=== PATIENT | female | born 1980 | race Caucasian/White ===

== ENCOUNTER 2017-06-26 03:15 | Inpatient (IN) | payer OTHER ==
[2017-06-26] MEDS: FAMOTIDINE 20 MG TAB PO (05:16)
[2017-06-26] MEDS: morphine 4 MG/ML VIAL IV ×3 (05:16→12:52)
[2017-06-26] MEDS: ONDANSETRON 4 MG INJ IV ×4 (05:16→19:41)
[2017-06-26] MEDS: SOD CHLORIDE 0.9% 1,000 ML IV ×2 (05:17→11:01)
[2017-06-26 05:48] LABS: ADD MAN DIFF? NO
[2017-06-26 05:53] LABS: BASOPHIL # 0.2 10^3/ul (0.0-0.1); BASOPHILS % 3.3 % (0.0-2.0); EOSINOPHILS # 0.3 10^3/ul (0.0-0.5); HEMATOCRIT 40.7 % (37.0-47.0); LYMPHOCYTES # 1.9 10^3/ul (0.8-2.9); LYMPHOCYTES % 30.7 % (15.0-51.0); MEAN CORPUSCULAR HEMOGLOBIN 30.3 pg (29.0-33.0); MEAN CORPUSCULAR HGB CONC 34.4 g/dl (32.0-37.0); MEAN CORPUSCULAR VOLUME 88.1 fl (82.0-101.0); MEAN PLATELET VOLUME 11.4 fl (7.4-10.4); MONOCYTE # 0.7 10^3/ul (0.3-0.9); MONOCYTES % 11.1 % (0.0-11.0); NEUTROPHILS % 49.6 % (39.0-77.0); PLATELET COUNT 161 10^3/UL (140-415); RED BLOOD COUNT 4.62 10^6/ul (4.20-5.40); RED CELL DISTRIBUTION WIDTH 15.9 % (11.5-14.5)
[2017-06-26 05:53] LABS: WHITE BLOOD COUNT 6.1 10^3/ul (4.8-10.8)
[2017-06-26 06:11] LABS: ALANINE AMINOTRANSFERASE 36 IU/L (13-69); ALBUMIN 2.6 g/dl (3.3-4.9); ALBUMIN/GLOBULIN RATIO 0.63; ALKALINE PHOSPHATASE 428 IU/L (42-121); ANION GAP 17 (8-16); ASPARTATE AMINO TRANSFERASE 123 IU/L (15-46); BILIRUBIN,INDIRECT 0.2 mg/dl (0-1.1); BILIRUBIN,TOTAL 0.2 mg/dl (0.2-1.3); BLOOD UREA NITROGEN 5 mg/dl (7-20); CALCIUM 7.3 mg/dl (8.4-10.2); CARBON DIOXIDE 25 mmol/L (21-31); CHLORIDE 105 mmol/L (97-110); CREATININE 0.52 mg/dl (0.44-1.00); GLUCOSE 94 mg/dl (70-220); LIPASE 185 U/L (23-300); POTASSIUM 4.9 mmol/L (3.5-5.1); SODIUM 142 mmol/L (135-144); TOTAL PROTEIN 6.7 g/dl (6.1-8.1)
[2017-06-26 06:12] LABS: URINE BLOOD (Dip) POC 2+ (NEGATIVE); URINE GLUCOSE (Dip) POC Negative (NEGATIVE); URINE KETONES (Dip) POC Negative (NEGATIVE); URINE LEUKOCYTE EST (Dip) POC Negative (NEGATIVE); URINE NITRITE (Dip) POC Negative (NEGATIVE); URINE TOTAL PROTEIN POC 3+ (NEGATIVE)
[2017-06-26 06:12] LABS: URINE PH (Dip) POC 6.5 (5.0-8.5)
[2017-06-26 06:24] LABS: TROPONIN-I < 0.012 ng/ml (0.00-0.12)
[2017-06-26 07:20] LABS: INR 1.03; PROTIME 13.6 Sec (11.9-14.9); PT RATIO 1.1
[2017-06-26 07:21] LABS: ADD UMIC YES; PARTIAL THROMBOPLASTIN TIME 35.4 Sec (25.0-35.0); UR ASCORBIC ACID NEGATIVE (NEGATIVE); UR BACTERIA FEW /HPF (NONE SEEN); UR BILIRUBIN (Dip) NEGATIVE (NEGATIVE); UR BLOOD (Dip) 2+ mg/dL (NEGATIVE); UR CLARITY CLOUDY (CLEAR); UR COLOR AMBER (YELLOW); UR GLUCOSE (Dip) NEGATIVE (NEGATIVE); UR KETONES (Dip) NEGATIVE (NEGATIVE); UR LEUKOCYTE ESTERASE (Dip) NEGATIVE Leu/ul (NEGATIVE); UR MUCUS FEW /HPF (NONE SEEN); UR NITRITE (Dip) NEGATIVE (NEGATIVE); UR RBC 18 /HPF (0-5); UR SPECIFIC GRAVITY (Dip) 1.018 (1.003-1.030); UR SQUAMOUS EPITHELIAL CELL FEW /HPF (FEW); UR TOTAL PROTEIN (Dip) 3+ mg/dl (NEGATIVE); UR UROBILINOGEN (Dip) 1+ mg/dL (NEGATIVE); UR WBC 5 /HPF (0-5)
[2017-06-26 07:25] LABS: LACTIC ACID 1.2 mmol/L (0.5-2.0)
[2017-06-26 07:38] LABS: AMPHETAMINE/METHAMPHETAMINE Negative (NEGATIVE); BARBITURATES Negative (NEGATIVE); BENZODIAZEPINES Negative (NEGATIVE); CANNABINOIDS Negative (NEGATIVE); COCAINE Negative (NEGATIVE); OPIATES Positive (NEGATIVE)
[2017-06-26 07:43] LABS: B-TYPE NATRIURETIC PEPTIDE 32 PG/ML (0-125)
[2017-06-26] MEDS: ALBUTEROL 0.5% (NEB) 2.5 MG/0.5 ML AMP INH (09:37)
[2017-06-26] MEDS: SOD CHLORIDE 0.9% 100 ML (10:20)
[2017-06-26] MEDS: IOHEXOL 300MG/ML 150 ML BTL (10:25)
[2017-06-26] MEDS: PANTOPRAZOLE IV 80 MG in SOD CHLORIDE 0.9% 100 ML IVPB (10:43)
[2017-06-26] MEDS: PANTOPRAZOLE IV 80 MG in SOD CHLORIDE 0.9% 100 ML IV (10:44)
[2017-06-26] MEDS ORDERED: ONDANSETRON 4 MG INJ IV (11:30)
[2017-06-26] MEDS ORDERED: ACETAMINOPHEN 325 MG TAB PO (11:30)
[2017-06-26] MEDS: FUROSEMIDE 20 MG INJ IV ×2 (15:15→22:56)
[2017-06-26] MEDS: ALBUMIN HUMAN 25% 100 ML IV ×2 (15:37→23:43)
[2017-06-26] MEDS: LORAZEPAM 2 MG INJ IV (16:29)
[2017-06-26] MEDS: PANTOPRAZOLE 40 MG INJ IV (18:00)
[2017-06-26] MEDS: HYDROCODONE/APAP (5/325) TAB PO (18:19)
[2017-06-26] MEDS: DOCUSATE SODIUM 100 MG CAP PO (20:58)
[2017-06-26] MEDS: CHLORDIAZEPOXIDE 5 MG CAP PO (20:59)
[2017-06-27] MEDS: HYDROCODONE/APAP (5/325) TAB PO ×3 (00:24→23:28)
[2017-06-27] MEDS: LORAZEPAM 2 MG INJ IV ×3 (04:43→21:18)
[2017-06-27] MEDS: FUROSEMIDE 20 MG INJ IV ×3 (05:57→22:02)
[2017-06-27] MEDS: PANTOPRAZOLE 40 MG INJ IV ×2 (05:57→18:15)
[2017-06-27] MEDS: ALBUMIN HUMAN 25% 100 ML IV (05:58)
[2017-06-27] MEDS: THIAMINE 100 MG TAB PO (08:50)
[2017-06-27] MEDS: DOCUSATE SODIUM 100 MG CAP PO ×2 (08:50→22:02)
[2017-06-27] MEDS: FOLIC ACID 1 MG TAB PO (08:50)
[2017-06-27] MEDS: CHLORDIAZEPOXIDE 5 MG CAP PO ×3 (08:50→22:02)
[2017-06-27] MEDS: MULTIVITAMINS THERAPEUTIC TAB PO (08:50)
[2017-06-27] MEDS: AZITHROMYCIN 250 MG TAB PO (10:52)
[2017-06-27] MEDS: TOPIRAMATE 25 MG TAB PO ×2 (11:51→22:02)
[2017-06-27 12:01] LABS: ADD MAN DIFF? NO
[2017-06-27 12:21] LABS: WHITE BLOOD COUNT 4.9 10^3/ul (4.8-10.8)
[2017-06-27 12:21] LABS: BASOPHIL # 0.1 10^3/ul (0.0-0.1); BASOPHILS % 2.1 % (0.0-2.0); EOSINOPHILS # 0.2 10^3/ul (0.0-0.5); EOSINOPHILS % 4.1 % (0.0-7.0); HEMOGLOBIN 11.9 g/dl (12.0-16.0); LYMPHOCYTES # 0.8 10^3/ul (0.8-2.9); LYMPHOCYTES % 16.1 % (15.0-51.0); MEAN CORPUSCULAR HEMOGLOBIN 29.6 pg (29.0-33.0); MEAN CORPUSCULAR HGB CONC 33.1 g/dl (32.0-37.0); MEAN CORPUSCULAR VOLUME 89.6 fl (82.0-101.0); MEAN PLATELET VOLUME 10.7 fl (7.4-10.4); MONOCYTE # 0.6 10^3/ul (0.3-0.9); MONOCYTES % 11.8 % (0.0-11.0); NEUTROPHIL # 3.2 10^3/ul (1.6-7.5); NEUTROPHILS % 65.7 % (39.0-77.0); PLATELET COUNT 133 10^3/UL (140-415); RED BLOOD COUNT 4.02 10^6/ul (4.20-5.40); RED CELL DISTRIBUTION WIDTH 14.4 % (11.5-14.5)
[2017-06-27 12:28] LABS: HEMOGLOBIN A1C 5.5 % (0-5.9)
[2017-06-27 12:34] LABS: INR 1.09; PROTIME 14.3 Sec (11.9-14.9); PT RATIO 1.1
[2017-06-27 12:35] LABS: PARTIAL THROMBOPLASTIN TIME 35.4 Sec (25.0-35.0)
[2017-06-27 12:41] LABS: ALANINE AMINOTRANSFERASE 29 IU/L (13-69); ALBUMIN 3.1 g/dl (3.3-4.9); ALBUMIN/GLOBULIN RATIO 0.83; ALKALINE PHOSPHATASE 331 IU/L (42-121); ANION GAP 17 (8-16); ASPARTATE AMINO TRANSFERASE 104 IU/L (15-46); BILIRUBIN,INDIRECT 0.8 mg/dl (0-1.1); BILIRUBIN,TOTAL 0.9 mg/dl (0.2-1.3); BLOOD UREA NITROGEN 6 mg/dl (7-20); CALCIUM 7.2 mg/dl (8.4-10.2); CARBON DIOXIDE 28 mmol/L (21-31); CHLORIDE 102 mmol/L (97-110); CHOL/HDL RATIO 2.2 RATIO; CHOLESTEROL 239 mg/dl (100-200); CREATININE 0.56 mg/dl (0.44-1.00); GLUCOSE 61 mg/dl (70-220); HDL CHOLESTEROL 106 mg/dl (34-82); LDL CHOLESTEROL,CALCULATED 104 mg/dl; PHOSPHORUS 3.6 mg/dl (2.5-4.9); POTASSIUM 3.4 mmol/L (3.5-5.1); SODIUM 144 mmol/L (135-144); TOTAL PROTEIN 6.8 g/dl (6.1-8.1); TRIGLYCERIDES 147 mg/dl (0-149)
[2017-06-27] MEDS: CEFAZOLIN 1 GM/50 ML (PMX) 50 ML IVPB ×2 (13:30→21:21)
[2017-06-28] MEDS: LEVALBUTEROL (NEB) 0.63 MG/3 ML AMP HHN (03:05)
[2017-06-28] MEDS: ACETYLCYSTEINE 20% 4 ML VIAL NEB (03:05)
[2017-06-28] MEDS: IPRATROPIUM (NEB) 0.5 MG/2.5 ML AMP HHN (03:05)
[2017-06-28] MEDS: PANTOPRAZOLE 40 MG INJ IV ×2 (05:39→18:38)
[2017-06-28] MEDS: CEFAZOLIN 1 GM/50 ML (PMX) 50 ML IVPB ×3 (05:39→22:18)
[2017-06-28] MEDS: FUROSEMIDE 20 MG INJ IV ×3 (05:40→22:19)
[2017-06-28 05:50] LABS: ADD MAN DIFF? NO
[2017-06-28 06:07] LABS: WHITE BLOOD COUNT 4.9 10^3/ul (4.8-10.8)
[2017-06-28 06:07] LABS: BASOPHIL # 0.1 10^3/ul (0.0-0.1); BASOPHILS % 1.6 % (0.0-2.0); EOSINOPHILS # 0.3 10^3/ul (0.0-0.5); HEMATOCRIT 35.2 % (37.0-47.0); HEMOGLOBIN 12.2 g/dl (12.0-16.0); LYMPHOCYTES # 1.2 10^3/ul (0.8-2.9); LYMPHOCYTES % 24.4 % (15.0-51.0); MEAN CORPUSCULAR HEMOGLOBIN 30.3 pg (29.0-33.0); MEAN CORPUSCULAR HGB CONC 34.7 g/dl (32.0-37.0); MEAN CORPUSCULAR VOLUME 87.6 fl (82.0-101.0); MEAN PLATELET VOLUME 10.6 fl (7.4-10.4); MONOCYTE # 0.6 10^3/ul (0.3-0.9); MONOCYTES % 12.3 % (0.0-11.0); NEUTROPHIL # 2.7 10^3/ul (1.6-7.5); NEUTROPHILS % 54.5 % (39.0-77.0); PLATELET COUNT 128 10^3/UL (140-415); RED BLOOD COUNT 4.02 10^6/ul (4.20-5.40); RED CELL DISTRIBUTION WIDTH 14.2 % (11.5-14.5)
[2017-06-28 06:54] LABS: MAGNESIUM 1.2 mg/dl (1.7-2.5)
[2017-06-28 07:04] LABS: ALANINE AMINOTRANSFERASE 27 IU/L (13-69); ALBUMIN 2.7 g/dl (3.3-4.9); ALBUMIN/GLOBULIN RATIO 0.77; ALKALINE PHOSPHATASE 282 IU/L (42-121); ANION GAP 11 (8-16); ASPARTATE AMINO TRANSFERASE 80 IU/L (15-46); BILIRUBIN,INDIRECT 0.5 mg/dl (0-1.1); BILIRUBIN,TOTAL 0.5 mg/dl (0.2-1.3); BLOOD UREA NITROGEN 7 mg/dl (7-20); CALCIUM 6.9 mg/dl (8.4-10.2); CARBON DIOXIDE 34 mmol/L (21-31); CHLORIDE 99 mmol/L (97-110); CREATININE 0.76 mg/dl (0.44-1.00); GLUCOSE 94 mg/dl (70-220); POTASSIUM 3.2 mmol/L (3.5-5.1); SODIUM 141 mmol/L (135-144); TOTAL PROTEIN 6.2 g/dl (6.1-8.1)
[2017-06-28] MEDS: THIAMINE 100 MG TAB PO (08:10)
[2017-06-28] MEDS: AZITHROMYCIN 250 MG TAB PO (08:10)
[2017-06-28] MEDS: DOCUSATE SODIUM 100 MG CAP PO ×2 (08:10→20:14)
[2017-06-28] MEDS: CHLORDIAZEPOXIDE 5 MG CAP PO ×3 (08:11→20:14)
[2017-06-28] MEDS: MULTIVITAMINS THERAPEUTIC TAB PO (08:11)
[2017-06-28] MEDS: HYDROCODONE/APAP (5/325) TAB PO ×2 (08:11→20:14)
[2017-06-28] MEDS: FOLIC ACID 1 MG TAB PO (08:11)
[2017-06-28] MEDS: TOPIRAMATE 25 MG TAB PO ×2 (08:11→20:14)
[2017-06-28] MEDS: BISACODYL (EC) 5 MG TAB PO (09:55)
[2017-06-28] MEDS: POTASSIUM CHLORIDE (SR) 20 MEQ TAB PO (13:34)
[2017-06-28] MEDS ORDERED: POTASSIUM CHLORIDE 30 MEQ in DEXTROSE 5% 250 ML IVPB (14:15)
[2017-06-28] MEDS: POTASSIUM CHLORIDE 50 ML IVPB ×3 (15:43→18:38)
[2017-06-28] MEDS: PERMETHRIN 5% 60 GM CR TOP (15:49)
[2017-06-28] MEDS: POLYETHYLENE GLYCOL 3350 119 GM POWDER PO (20:13)
[2017-06-28] MEDS: MAGNESIUM CITRATE 300 ML BTL PO (21:21)
[2017-06-28] MEDS: PERMETHRIN 1% 59 ML TOP (23:57)
[2017-06-29] MEDS: PANTOPRAZOLE 40 MG INJ IV (05:05)
[2017-06-29] MEDS: FUROSEMIDE 20 MG INJ IV ×2 (05:06→14:25)
[2017-06-29] MEDS: POLYETHYLENE GLYCOL 3350 119 GM POWDER PO (05:06)
[2017-06-29] MEDS: CEFAZOLIN 1 GM/50 ML (PMX) 50 ML IVPB ×3 (05:06→21:11)
[2017-06-29 06:22] LABS: ADD MAN DIFF? NO
[2017-06-29 06:33] LABS: WHITE BLOOD COUNT 5.7 10^3/ul (4.8-10.8)
[2017-06-29 06:33] LABS: BASOPHIL # 0.1 10^3/ul (0.0-0.1); BASOPHILS % 1.8 % (0.0-2.0); EOSINOPHILS # 0.4 10^3/ul (0.0-0.5); HEMATOCRIT 36.8 % (37.0-47.0); HEMOGLOBIN 12.8 g/dl (12.0-16.0); LYMPHOCYTES # 1.5 10^3/ul (0.8-2.9); LYMPHOCYTES % 25.7 % (15.0-51.0); MEAN CORPUSCULAR HEMOGLOBIN 30.5 pg (29.0-33.0); MEAN CORPUSCULAR HGB CONC 34.8 g/dl (32.0-37.0); MEAN CORPUSCULAR VOLUME 87.8 fl (82.0-101.0); MEAN PLATELET VOLUME 11.1 fl (7.4-10.4); MONOCYTE # 0.8 10^3/ul (0.3-0.9); MONOCYTES % 13.5 % (0.0-11.0); NEUTROPHILS % 51.8 % (39.0-77.0); PLATELET COUNT 147 10^3/UL (140-415); RED BLOOD COUNT 4.19 10^6/ul (4.20-5.40); RED CELL DISTRIBUTION WIDTH 14.4 % (11.5-14.5)
[2017-06-29 06:47] LABS: ALBUMIN 2.7 g/dl (3.3-4.9); ANION GAP 10 (8-16); BLOOD UREA NITROGEN 7 mg/dl (7-20); CALCIUM 7.2 mg/dl (8.4-10.2); CARBON DIOXIDE 33 mmol/L (21-31); CHLORIDE 100 mmol/L (97-110); GLUCOSE 93 mg/dl (70-220); PHOSPHORUS 2.9 mg/dl (2.5-4.9); POTASSIUM 3.1 mmol/L (3.5-5.1); SODIUM 140 mmol/L (135-144)
[2017-06-29] MEDS: FOLIC ACID 1 MG TAB PO (08:03)
[2017-06-29] MEDS: DOCUSATE SODIUM 100 MG CAP PO ×2 (08:03→20:16)
[2017-06-29] MEDS: THIAMINE 100 MG TAB PO (08:04)
[2017-06-29] MEDS: MULTIVITAMINS THERAPEUTIC TAB PO (08:04)
[2017-06-29] MEDS: AZITHROMYCIN 250 MG TAB PO (08:20)
[2017-06-29] MEDS: CHLORDIAZEPOXIDE 5 MG CAP PO ×3 (08:20→21:08)
[2017-06-29] MEDS: BISACODYL (EC) 5 MG TAB PO (08:21)
[2017-06-29] MEDS: TOPIRAMATE 25 MG TAB PO ×2 (08:21→20:16)
[2017-06-29] MEDS ORDERED: POTASSIUM CHLORIDE 30 MEQ in SOD CHLORIDE 0.9% 150 ML IVPB (10:00)
[2017-06-29] MEDS: POTASSIUM CHLORIDE 50 ML IVPB ×3 (10:14→13:19)
[2017-06-29] MEDS ORDERED: DICYCLOMINE 10 MG CAP PO (12:00)
[2017-06-29] MEDS ORDERED: D5W-0.45 NACL + KCL 20 MEQ 1,000 ML IV (12:00)
[2017-06-29] MEDS: ALBUTEROL 0.083% (NEB) 2.5 MG/3 ML AMP HHN (17:27)
[2017-06-29] MEDS: SPIRONOLACTONE 25 MG TAB PO ×2 (18:00→20:16)
[2017-06-29] MEDS ORDERED: PROPOFOL 20 ML (18:17)
[2017-06-29] MEDS: POTASSIUM CHLORIDE (1.33 MEQ/ML PO SYG) PO (20:17)
[2017-06-29] MEDS: HYDROCODONE/APAP (5/325) TAB PO (21:08)
[2017-06-29] MEDS: morphine 2 MG INJ IV (22:46)
[2017-06-30] MEDS: LEVALBUTEROL (NEB) 0.63 MG/3 ML AMP HHN (04:58)
[2017-06-30] MEDS: IPRATROPIUM (NEB) 0.5 MG/2.5 ML AMP HHN (04:58)
[2017-06-30] MEDS: PANTOPRAZOLE 40 MG INJ IV (05:26)
[2017-06-30] MEDS: FUROSEMIDE 20 MG TAB PO ×2 (05:27→17:40)
[2017-06-30] MEDS: SPIRONOLACTONE 25 MG TAB PO ×2 (05:27→17:40)
[2017-06-30] MEDS: CHLORDIAZEPOXIDE 5 MG CAP PO (05:28)
[2017-06-30] MEDS: CEFAZOLIN 1 GM/50 ML (PMX) 50 ML IVPB ×3 (05:30→22:08)
[2017-06-30 06:30] LABS: ADD MAN DIFF? NO
[2017-06-30 06:42] LABS: BASOPHIL # 0.1 10^3/ul (0.0-0.1); BASOPHILS % 1.6 % (0.0-2.0); EOSINOPHILS # 0.5 10^3/ul (0.0-0.5); EOSINOPHILS % 9.2 % (0.0-7.0); HEMATOCRIT 37.1 % (37.0-47.0); HEMOGLOBIN 12.7 g/dl (12.0-16.0); LYMPHOCYTES # 1.4 10^3/ul (0.8-2.9); LYMPHOCYTES % 27.8 % (15.0-51.0); MEAN CORPUSCULAR HEMOGLOBIN 30.5 pg (29.0-33.0); MEAN CORPUSCULAR HGB CONC 34.2 g/dl (32.0-37.0); MONOCYTE # 0.8 10^3/ul (0.3-0.9); MONOCYTES % 15.8 % (0.0-11.0); NEUTROPHIL # 2.3 10^3/ul (1.6-7.5); NEUTROPHILS % 45.2 % (39.0-77.0); PLATELET COUNT 149 10^3/UL (140-415); RED BLOOD COUNT 4.17 10^6/ul (4.20-5.40); RED CELL DISTRIBUTION WIDTH 14.6 % (11.5-14.5)
[2017-06-30 07:16] LABS: ALBUMIN 2.6 g/dl (3.3-4.9); ANION GAP 10 (8-16); BLOOD UREA NITROGEN 7 mg/dl (7-20); CARBON DIOXIDE 31 mmol/L (21-31); CHLORIDE 103 mmol/L (97-110); CREATININE 0.72 mg/dl (0.44-1.00); GLUCOSE 85 mg/dl (70-220); MAGNESIUM 1.3 mg/dl (1.7-2.5); PHOSPHORUS 3.6 mg/dl (2.5-4.9); POTASSIUM 3.5 mmol/L (3.5-5.1); SODIUM 140 mmol/L (135-144)
[2017-06-30] MEDS: DOCUSATE SODIUM 100 MG CAP PO ×2 (08:47→22:08)
[2017-06-30] MEDS: FOLIC ACID 1 MG TAB PO (08:47)
[2017-06-30] MEDS: POTASSIUM CHLORIDE (1.33 MEQ/ML PO SYG) PO ×2 (08:48→22:08)
[2017-06-30] MEDS: THIAMINE 100 MG TAB PO (08:48)
[2017-06-30] MEDS: MULTIVITAMINS THERAPEUTIC TAB PO (08:48)
[2017-06-30] MEDS: AZITHROMYCIN 250 MG TAB PO (08:48)
[2017-06-30] MEDS: morphine 2 MG INJ IV ×2 (09:23→22:24)
[2017-06-30] MEDS: TOPIRAMATE 25 MG TAB PO ×2 (09:23→22:08)
[2017-06-30] MEDS: POTASSIUM CHLORIDE (SR) 20 MEQ TAB PO (12:53)
[2017-06-30] MEDS: MAGNESIUM OXIDE 400 MG TAB PO (12:53)
[2017-06-30 16:21] LABS: COLLECTION PERIOD 24 hrs
[2017-06-30 17:04] LABS: CREATININE,URINE RANDOM 42.57 mg/dl (20-320)
[2017-06-30 17:09] LABS: COLLECTION PERIOD 24 hrs; CREATININE CLEARANCE 50.3 mls/min (84.0-162.0); SCRET 0.72 mg/dl (0.44-1.00); VOLUME 1225 ml/24hrs
[2017-06-30 17:10] LABS: VOLUME 1225 mls
[2017-06-30 17:24] LABS: 24HR URINE TOTAL PROTEIN 5267.5 mg/24hrs (42.0-225.0)
[2017-07-01] MEDS: LEVALBUTEROL (NEB) 0.63 MG/3 ML AMP HHN (01:05)
[2017-07-01] MEDS: PANTOPRAZOLE (EC) 40 MG TAB PO (05:26)
[2017-07-01] MEDS: CEFAZOLIN 1 GM/50 ML (PMX) 50 ML IVPB ×2 (05:26→13:30)
[2017-07-01] MEDS: FUROSEMIDE 20 MG TAB PO (05:27)
[2017-07-01] MEDS: SPIRONOLACTONE 25 MG TAB PO (05:28)
[2017-07-01] MEDS: HYDROCODONE/APAP (5/325) TAB PO (05:36)
[2017-07-01 07:15] LABS: ADD MAN DIFF? NO
[2017-07-01 07:23] LABS: BASOPHIL # 0.1 10^3/ul (0.0-0.1); BASOPHILS % 1.8 % (0.0-2.0); EOSINOPHILS # 0.4 10^3/ul (0.0-0.5); EOSINOPHILS % 7.9 % (0.0-7.0); HEMATOCRIT 35.9 % (37.0-47.0); HEMOGLOBIN 12.6 g/dl (12.0-16.0); LYMPHOCYTES # 1.3 10^3/ul (0.8-2.9); LYMPHOCYTES % 24.5 % (15.0-51.0); MEAN CORPUSCULAR HEMOGLOBIN 30.7 pg (29.0-33.0); MEAN CORPUSCULAR HGB CONC 35.1 g/dl (32.0-37.0); MEAN CORPUSCULAR VOLUME 87.3 fl (82.0-101.0); MEAN PLATELET VOLUME 11.4 fl (7.4-10.4); MONOCYTE # 0.8 10^3/ul (0.3-0.9); MONOCYTES % 14.9 % (0.0-11.0); NEUTROPHIL # 2.7 10^3/ul (1.6-7.5); NEUTROPHILS % 50.5 % (39.0-77.0); PLATELET COUNT 136 10^3/UL (140-415); RED BLOOD COUNT 4.11 10^6/ul (4.20-5.40); RED CELL DISTRIBUTION WIDTH 14.5 % (11.5-14.5)
[2017-07-01 07:23] LABS: WHITE BLOOD COUNT 5.4 10^3/ul (4.8-10.8)
[2017-07-01 07:34] LABS: POSITIVE DIFF @See below
[2017-07-01 07:52] LABS: ALBUMIN 2.4 g/dl (3.3-4.9); ANION GAP 9 (8-16); BLOOD UREA NITROGEN 6 mg/dl (7-20); CALCIUM 7.4 mg/dl (8.4-10.2); CARBON DIOXIDE 29 mmol/L (21-31); CHLORIDE 104 mmol/L (97-110); CREATININE 0.65 mg/dl (0.44-1.00); GLUCOSE 81 mg/dl (70-220); MAGNESIUM 1.3 mg/dl (1.7-2.5); POTASSIUM 3.6 mmol/L (3.5-5.1); SODIUM 138 mmol/L (135-144)
[2017-07-01] MEDS: POTASSIUM CHLORIDE (1.33 MEQ/ML PO SYG) PO (08:49)
[2017-07-01] MEDS: THIAMINE 100 MG TAB PO (08:50)
[2017-07-01] MEDS: MULTIVITAMINS THERAPEUTIC TAB PO (08:50)
[2017-07-01] MEDS: DOCUSATE SODIUM 100 MG CAP PO (08:50)
[2017-07-01] MEDS: FOLIC ACID 1 MG TAB PO (08:50)
[2017-07-01] MEDS: TOPIRAMATE 25 MG TAB PO (10:48)
[2017-07-01] MEDS ORDERED: POLYETHYLENE GLYCOL 17 GM PACKET PO (11:00)
[2017-07-01] MEDS: POTASSIUM CHLORIDE (SR) 20 MEQ TAB PO (12:30)
[2017-07-01] MEDS: MAGNESIUM OXIDE 400 MG TAB PO (12:30)
== END 2017-07-01 15:00 | disposition home or self-care (01) | DRG 394 ==
LOC: E/R 03:15 → MS2 11:02
PROVIDERS: Family Medicine
PROC: 0DB68ZX Excision of Stomach, Via Natural or Artificial Opening Endoscopic, Diagnostic (ICD-10-PCS; principal; 2017-06-29 17:30)
PROC: 0DJD8ZZ Inspection of Lower Intestinal Tract, Via Natural or Artificial Opening Endoscopic (ICD-10-PCS; 2017-06-29 17:30)
DX: K64.8 Other hemorrhoids (principal); K92.1 Melena; I85.10 Secondary esophageal varices without bleeding; Z68.42 Body mass index [BMI] 45.0-49.9, adult; K70.31 Alcoholic cirrhosis of liver with ascites; D62 Acute posthemorrhagic anemia; E66.01 Morbid (severe) obesity due to excess calories; R16.1 Splenomegaly, not elsewhere classified; F10.229 Alcohol dependence with intoxication, unspecified; Y90.7 Blood alcohol level of 200-239 mg/100 ml; E87.6 Hypokalemia; I86.8 Varicose veins of other specified sites; K29.70 Gastritis, unspecified, without bleeding; R60.1 Generalized edema
CPT/HCPCS: 36415; 71045; 74177; 80053; 80061; 80069; 80306; 80307; 81001; 81003; 82575; 82962; 83036; 83605; 83690; 83735; 83880; 84156; 84484; 84703; 85025; 85610; 85730; 86850; 86900; 86901; 88305; 88312; 93005; 94640; 94644; 94664; 96361; 96365; 96375; 96376; 99285-25; J1940

== ENCOUNTER 2017-09-21 08:01 | Inpatient (IN) | payer OTHER ==
[2017-09-21] MEDS: ONDANSETRON 4 MG INJ IV (08:30)
[2017-09-21] MEDS: morphine 4 MG/ML VIAL IV (08:31)
[2017-09-21 08:48] LABS: ADD MAN DIFF? NO
[2017-09-21 08:53] LABS: BASOPHIL # 0.2 10^3/ul (0.0-0.1); BASOPHILS % 2.2 % (0.0-2.0); EOSINOPHILS # 0.2 10^3/ul (0.0-0.5); HEMATOCRIT 34.2 % (37.0-47.0); HEMOGLOBIN 12.6 g/dl (12.0-16.0); LYMPHOCYTES # 2.1 10^3/ul (0.8-2.9); LYMPHOCYTES % 27.7 % (15.0-51.0); MEAN CORPUSCULAR HEMOGLOBIN 32.3 pg (29.0-33.0); MEAN CORPUSCULAR HGB CONC 36.8 g/dl (32.0-37.0); MEAN CORPUSCULAR VOLUME 87.7 fl (82.0-101.0); MEAN PLATELET VOLUME 10.6 fl (7.4-10.4); MONOCYTE # 0.8 10^3/ul (0.3-0.9); MONOCYTES % 10.8 % (0.0-11.0); NEUTROPHIL # 4.2 10^3/ul (1.6-7.5); NEUTROPHILS % 55.9 % (39.0-77.0); NUCLEATED RED BLOOD CELLS% 0.3 /100WBC (0.0-0.0); PLATELET COUNT 187 10^3/UL (140-415); RED CELL DISTRIBUTION WIDTH 16.9 % (11.5-14.5)
[2017-09-21 08:53] LABS: WHITE BLOOD COUNT 7.4 10^3/ul (4.8-10.8)
[2017-09-21 09:09] LABS: INR 1.15; PROTIME 14.9 Sec (11.9-14.9); PT RATIO 1.2
[2017-09-21 09:10] LABS: ALANINE AMINOTRANSFERASE 133 IU/L (13-69); ALBUMIN 2.7 g/dl (3.3-4.9); ALBUMIN/GLOBULIN RATIO 0.58; ALKALINE PHOSPHATASE 1202 IU/L (42-121); ANION GAP 15 (8-16); ASPARTATE AMINO TRANSFERASE 400 IU/L (15-46); BILIRUBIN,INDIRECT 0.4 mg/dl (0-1.1); BILIRUBIN,TOTAL 1.1 mg/dl (0.2-1.3); BLOOD UREA NITROGEN 7 mg/dl (7-20); CALCIUM 7.2 mg/dl (8.4-10.2); CARBON DIOXIDE 24 mmol/L (21-31); CHLORIDE 107 mmol/L (97-110); CREATININE 0.84 mg/dl (0.44-1.00); GLUCOSE 105 mg/dl (70-220); LIPASE 132 U/L (23-300); PARTIAL THROMBOPLASTIN TIME 35.5 Sec (25.0-35.0); SODIUM 142 mmol/L (135-144); TOTAL PROTEIN 7.3 g/dl (6.1-8.1)
[2017-09-21 09:24] LABS: TROPONIN-I < 0.012 ng/ml (0.00-0.12)
[2017-09-21] MEDS ORDERED: ONDANSETRON 4 MG INJ IV (12:00)
[2017-09-21 13:20] LABS: MAGNESIUM 1.4 mg/dl (1.7-2.5)
[2017-09-21] MEDS: FUROSEMIDE 20 MG INJ IV ×2 (13:50→18:58)
[2017-09-21] MEDS: ALBUMIN HUMAN 25% 100 ML IV ×2 (14:54→21:41)
[2017-09-21] MEDS: CHLORDIAZEPOXIDE 25 MG CAP PO ×2 (15:11→21:41)
[2017-09-21] MEDS: ACETAMINOPHEN 325 MG TAB PO (15:22)
[2017-09-21] MEDS ORDERED: POLYETHYLENE GLYCOL 17 GM PACKET PO (18:00)
[2017-09-21] MEDS: SPIRONOLACTONE 25 MG TAB PO (18:57)
[2017-09-21] MEDS: OXYCODONE/ACETAMINOPHEN (5/325) TAB PO (18:57)
[2017-09-21] MEDS: TOPIRAMATE 25 MG TAB PO (21:42)
[2017-09-21] MEDS: DOCUSATE SODIUM 100 MG CAP PO (21:42)
[2017-09-21] MEDS: HEPARIN 5,000 UNIT/0.5 ML VIAL SC (22:02)
[2017-09-22] MEDS: FUROSEMIDE 40 MG INJ IV (02:36)
[2017-09-22] MEDS: ACETAMINOPHEN 500 MG TAB PO (03:30)
[2017-09-22] MEDS: morphine 2 MG INJ IV ×2 (05:23→09:23)
[2017-09-22] MEDS: FUROSEMIDE 20 MG INJ IV ×2 (05:24→17:28)
[2017-09-22] MEDS: SPIRONOLACTONE 25 MG TAB PO ×2 (05:24→17:28)
[2017-09-22] MEDS: HYDROmorphONE 0.5 MG/0.5 ML SYG IV (05:59)
[2017-09-22] MEDS: ALBUMIN HUMAN 25% 100 ML IV (06:04)
[2017-09-22 06:44] LABS: ADD MAN DIFF? NO
[2017-09-22 06:47] LABS: BASOPHIL # 0.1 10^3/ul (0.0-0.1); BASOPHILS % 1.6 % (0.0-2.0); EOSINOPHILS # 0.1 10^3/ul (0.0-0.5); EOSINOPHILS % 2.9 % (0.0-7.0); HEMATOCRIT 30.8 % (37.0-47.0); HEMOGLOBIN 11.1 g/dl (12.0-16.0); LYMPHOCYTES # 1.2 10^3/ul (0.8-2.9); LYMPHOCYTES % 27.7 % (15.0-51.0); MEAN CORPUSCULAR VOLUME 88.8 fl (82.0-101.0); MONOCYTE # 0.3 10^3/ul (0.3-0.9); MONOCYTES % 7.1 % (0.0-11.0); NEUTROPHIL # 2.7 10^3/ul (1.6-7.5); NEUTROPHILS % 59.8 % (39.0-77.0); PLATELET COUNT 149 10^3/UL (140-415); RED BLOOD COUNT 3.47 10^6/ul (4.20-5.40)
[2017-09-22 06:47] LABS: WHITE BLOOD COUNT 4.5 10^3/ul (4.8-10.8)
[2017-09-22 07:05] LABS: ALANINE AMINOTRANSFERASE 124 IU/L (13-69); ALBUMIN 2.7 g/dl (3.3-4.9); ALKALINE PHOSPHATASE 965 IU/L (42-121); ANION GAP 19 (8-16); ASPARTATE AMINO TRANSFERASE 385 IU/L (15-46); BILIRUBIN,INDIRECT 0.8 mg/dl (0-1.1); BILIRUBIN,TOTAL 2.4 mg/dl (0.2-1.3); BLOOD UREA NITROGEN 7 mg/dl (7-20); CARBON DIOXIDE 20 mmol/L (21-31); CHLORIDE 104 mmol/L (97-110); CREATININE 1.24 mg/dl (0.44-1.00); GLUCOSE 94 mg/dl (70-220); MAGNESIUM 1.2 mg/dl (1.7-2.5); SODIUM 139 mmol/L (135-144); TOTAL PROTEIN 7.2 g/dl (6.1-8.1)
[2017-09-22 07:06] LABS: AMMONIA 75 umol/l (9-30)
[2017-09-22] MEDS: THIAMINE 100 MG TAB PO (09:21)
[2017-09-22] MEDS: FOLIC ACID 1 MG TAB PO (09:21)
[2017-09-22] MEDS: TOPIRAMATE 25 MG TAB PO ×2 (09:21→21:21)
[2017-09-22] MEDS: DOCUSATE SODIUM 100 MG CAP PO ×2 (09:21→21:20)
[2017-09-22] MEDS: CHLORDIAZEPOXIDE 25 MG CAP PO ×3 (09:21→21:20)
[2017-09-22] MEDS: MULTIVITAMINS THERAPEUTIC TAB PO (09:22)
[2017-09-22] MEDS: HEPARIN 5,000 UNIT/0.5 ML VIAL SC ×2 (09:27→21:26)
[2017-09-22 10:20] LABS: HAAIG REFLEX REFLEX FILED
[2017-09-22 10:46] LABS: CHOL/HDL RATIO 6.4 RATIO; HDL CHOLESTEROL 29 mg/dl (34-88); LDL CHOLESTEROL,CALCULATED 117 mg/dl; TRIGLYCERIDES 210 mg/dl (0-149)
[2017-09-22 10:46] LABS: CHOLESTEROL 188 mg/dl (100-200)
[2017-09-22] MEDS: MAGNESIUM SULFATE 3 GM in DEXTROSE 5% 100 ML IVPB (10:48)
[2017-09-22] MEDS: ONDANSETRON 4 MG INJ IV ×2 (10:48→17:28)
[2017-09-22] MEDS: LORAZEPAM 2 MG INJ IV ×2 (10:48→23:09)
[2017-09-22 11:41] LABS: ADD UMIC YES; UR AMORPHOUS CRYSTAL FEW /HPF (NONE SEEN); UR ASCORBIC ACID NEGATIVE (NEGATIVE); UR BACTERIA MODERATE /HPF (NONE SEEN); UR BILIRUBIN (Dip) 2+ mg/dL (NEGATIVE); UR BLOOD (Dip) 3+ mg/dL (NEGATIVE); UR CLARITY CLOUDY (CLEAR); UR COLOR AMBER (YELLOW); UR GLUCOSE (Dip) NEGATIVE (NEGATIVE); UR KETONES (Dip) NEGATIVE (NEGATIVE); UR LEUKOCYTE ESTERASE (Dip) 2+ Leu/ul (NEGATIVE); UR MUCUS FEW /HPF (NONE SEEN); UR NITRITE (Dip) NEGATIVE (NEGATIVE); UR RBC 25 /HPF (0-5); UR SPECIFIC GRAVITY (Dip) 1.017 (1.003-1.030); UR SQUAMOUS EPITHELIAL CELL FEW /HPF (FEW); UR TOTAL PROTEIN (Dip) 2+ mg/dl (NEGATIVE); UR UROBILINOGEN (Dip) 2+ mg/dL (NEGATIVE); UR WBC 46 /HPF (0-5)
[2017-09-22 12:22] LABS: B-TYPE NATRIURETIC PEPTIDE 281 PG/ML (0-125)
[2017-09-22 12:47] LABS: CREATININE,URINE RANDOM 258.13 mg/dl (20-320)
[2017-09-22 12:54] LABS: AMPHETAMINE/METHAMPHETAMINE NEGATIVE (NEGATIVE); BARBITURATES NEGATIVE (NEGATIVE); BENZODIAZEPINES NEGATIVE (NEGATIVE); CANNABINOIDS NEGATIVE (NEGATIVE); COCAINE NEGATIVE (NEGATIVE)
[2017-09-22 12:56] LABS: OPIATES POSITIVE (NEGATIVE)
[2017-09-22 12:59] LABS: SODIUM,URINE RANDOM < 13 mmol/L (30-90)
[2017-09-22 13:20] LABS: HEPATITIS B SURFACE ANTIGEN NEGATIVE (NEGATIVE)
[2017-09-22 13:39] LABS: HEPATITIS B CORE ANTIBODY NEGATIVE (NEGATIVE); HEPATITIS C VIRAL ANTIBODY NEGATIVE (NEGATIVE)
[2017-09-22] MEDS: LACTULOSE 30ML CUP PO ×3 (14:00→21:21)
[2017-09-22] MEDS: MAGNESIUM CITRATE 300 ML BTL PO (16:46)
[2017-09-23] MEDS: morphine LIQ (10 MG/5 ML) CUP PO ×2 (02:22→22:12)
[2017-09-23] MEDS: SPIRONOLACTONE 25 MG TAB PO ×2 (06:40→17:44)
[2017-09-23] MEDS: PANTOPRAZOLE (EC) 40 MG TAB PO (06:40)
[2017-09-23] MEDS: LACTULOSE 30ML CUP PO ×3 (06:40→22:12)
[2017-09-23] MEDS: FUROSEMIDE 20 MG INJ IV (06:41)
[2017-09-23 08:12] LABS: ADD MAN DIFF? NO
[2017-09-23 08:17] LABS: BASOPHIL # 0.1 10^3/ul (0.0-0.1); BASOPHILS % 1.3 % (0.0-2.0); EOSINOPHILS # 0.2 10^3/ul (0.0-0.5); EOSINOPHILS % 3.1 % (0.0-7.0); HEMATOCRIT 29.5 % (37.0-47.0); HEMOGLOBIN 10.4 g/dl (12.0-16.0); LYMPHOCYTES # 1.5 10^3/ul (0.8-2.9); LYMPHOCYTES % 18.6 % (15.0-51.0); MEAN CORPUSCULAR HEMOGLOBIN 32.1 pg (29.0-33.0); MEAN CORPUSCULAR HGB CONC 35.3 g/dl (32.0-37.0); MEAN PLATELET VOLUME 10.9 fl (7.4-10.4); MONOCYTE # 0.8 10^3/ul (0.3-0.9); MONOCYTES % 10.3 % (0.0-11.0); NEUTROPHIL # 5.2 10^3/ul (1.6-7.5); NEUTROPHILS % 66.1 % (39.0-77.0); NUCLEATED RED BLOOD CELLS% 0.4 /100WBC (0.0-0.0); PLATELET COUNT 138 10^3/UL (140-415); RED BLOOD COUNT 3.24 10^6/ul (4.20-5.40); RED CELL DISTRIBUTION WIDTH 17.1 % (11.5-14.5)
[2017-09-23 08:17] LABS: WHITE BLOOD COUNT 7.8 10^3/ul (4.8-10.8)
[2017-09-23 08:39] LABS: ALANINE AMINOTRANSFERASE 110 IU/L (13-69); ALBUMIN 2.5 g/dl (3.3-4.9); ALBUMIN/GLOBULIN RATIO 0.59; ALKALINE PHOSPHATASE 822 IU/L (42-121); ANION GAP 13 (8-16); ASPARTATE AMINO TRANSFERASE 309 IU/L (15-46); BILIRUBIN,INDIRECT 1.1 mg/dl (0-1.1); BILIRUBIN,TOTAL 4.5 mg/dl (0.2-1.3); BLOOD UREA NITROGEN 8 mg/dl (7-20); CALCIUM 6.9 mg/dl (8.4-10.2); CARBON DIOXIDE 24 mmol/L (21-31); CHLORIDE 101 mmol/L (97-110); CREATININE 2.28 mg/dl (0.44-1.00); GLUCOSE 98 mg/dl (70-220); SODIUM 134 mmol/L (135-144); TOTAL PROTEIN 6.7 g/dl (6.1-8.1)
[2017-09-23 08:56] LABS: AMMONIA 77 umol/l (9-30)
[2017-09-23] MEDS: THIAMINE 100 MG TAB PO (09:46)
[2017-09-23] MEDS: ONDANSETRON 4 MG INJ IV (09:46)
[2017-09-23] MEDS: TOPIRAMATE 25 MG TAB PO ×2 (09:46→22:00)
[2017-09-23] MEDS: MULTIVITAMINS THERAPEUTIC TAB PO (09:46)
[2017-09-23] MEDS: DOCUSATE SODIUM 100 MG CAP PO ×2 (09:46→22:00)
[2017-09-23] MEDS: FOLIC ACID 1 MG TAB PO (09:46)
[2017-09-23] MEDS: CHLORDIAZEPOXIDE 25 MG CAP PO (09:48)
[2017-09-23] MEDS: HEPARIN 5,000 UNIT/0.5 ML VIAL SC ×2 (09:51→22:07)
[2017-09-23 10:27] LABS: MAGNESIUM 1.5 mg/dl (1.7-2.5)
[2017-09-23 10:27] LABS: PHOSPHORUS 2.4 mg/dl (2.5-4.9)
[2017-09-23] MEDS ORDERED: CEFOTAXIME 2 GM/50 ML (PMX) 50 ML IVPB (11:00)
[2017-09-23] MEDS: METOCLOPRAMIDE 10 MG INJ IV (12:07)
[2017-09-23] MEDS: ALBUMIN HUMAN 25% 50 ML IV ×2 (12:07→17:45)
[2017-09-23] MEDS: CEFOTAXIME IVPB ×2 (13:06→22:12)
[2017-09-23] MEDS: CHLORDIAZEPOXIDE 5 MG CAP PO ×2 (13:06→22:00)
[2017-09-23] MEDS: DEXTROSE 5% IVPB ×2 (13:06→22:12)
[2017-09-23] MEDS: MAGNESIUM SULFATE 2 GM/50 ML 50 ML IVPB (13:09)
[2017-09-23 14:28] LABS: AADO2 Arterial 35.9 mmHg (7.0-24.0); Allen Test ACCEPTAB; Arterial Base Excess -3.4 mmol/L (-3.0-3); Arterial Blood Gas Oxygen Sat 94.5 mmHG (95.0-98.0); Arterial COHb 0.8 % (0.0-3.0); Arterial Fraction of Oxyhgb 93.3 % (93.0-99.0); Arterial HCO3 20.6 mmol/L (22.0-26.0); Arterial MetHb 0.5 % (0.0-1.5); Arterial Total Hemglobin 12.6 g/dl (12.0-18.0); Arterial pCO2 33.5 mmhg (35-45); MODE ROOM AIR; Site Right Radial
[2017-09-23 15:25] LABS: LACTIC ACID 2.5 mmol/L (0.5-2.0)
[2017-09-23 15:56] LABS: CREATININE, RANDOM URINE 263 mg/dL (20-320); MICROALBUMIN 93.8 mg/dL; MICROALBUMIN/CREATININE RATIO 357 (<30)
[2017-09-24] MEDS: ALBUMIN HUMAN 25% 50 ML IV ×2 (00:56→06:08)
[2017-09-24] MEDS: DEXTROSE 5% IVPB ×2 (06:07→14:18)
[2017-09-24] MEDS: PANTOPRAZOLE (EC) 40 MG TAB PO (06:07)
[2017-09-24] MEDS: CEFOTAXIME IVPB ×2 (06:07→14:18)
[2017-09-24] MEDS: SPIRONOLACTONE 25 MG TAB PO ×2 (06:07→17:40)
[2017-09-24] MEDS: LACTULOSE 30ML CUP PO ×2 (06:07→14:18)
[2017-09-24 07:20] LABS: ADD MAN DIFF? NO
[2017-09-24 07:23] LABS: WHITE BLOOD COUNT 7.6 10^3/ul (4.8-10.8)
[2017-09-24 07:23] LABS: BASOPHIL # 0.1 10^3/ul (0.0-0.1); BASOPHILS % 0.9 % (0.0-2.0); EOSINOPHILS # 0.3 10^3/ul (0.0-0.5); EOSINOPHILS % 4.1 % (0.0-7.0); HEMATOCRIT 27.2 % (37.0-47.0); HEMOGLOBIN 9.8 g/dl (12.0-16.0); LYMPHOCYTES # 1.4 10^3/ul (0.8-2.9); LYMPHOCYTES % 18.5 % (15.0-51.0); MEAN CORPUSCULAR HEMOGLOBIN 32.2 pg (29.0-33.0); MEAN CORPUSCULAR VOLUME 89.5 fl (82.0-101.0); MONOCYTE # 0.9 10^3/ul (0.3-0.9); MONOCYTES % 12.2 % (0.0-11.0); NEUTROPHIL # 4.8 10^3/ul (1.6-7.5); NEUTROPHILS % 63.3 % (39.0-77.0); NUCLEATED RED BLOOD CELLS% 0.4 /100WBC (0.0-0.0); PLATELET COUNT 126 10^3/UL (140-415); RED BLOOD COUNT 3.04 10^6/ul (4.20-5.40)
[2017-09-24 07:47] LABS: PHOSPHORUS 1.8 mg/dl (2.5-4.9)
[2017-09-24 07:47] LABS: MAGNESIUM 1.8 mg/dl (1.7-2.5)
[2017-09-24 07:48] LABS: ALANINE AMINOTRANSFERASE 93 IU/L (13-69); ALKALINE PHOSPHATASE 578 IU/L (42-121); ANION GAP 11 (8-16); ASPARTATE AMINO TRANSFERASE 186 IU/L (15-46); BILIRUBIN,TOTAL 5.4 mg/dl (0.2-1.3); BLOOD UREA NITROGEN 10 mg/dl (7-20); CALCIUM 6.8 mg/dl (8.4-10.2); CARBON DIOXIDE 25 mmol/L (21-31); CHLORIDE 102 mmol/L (97-110); CREATININE 3.02 mg/dl (0.44-1.00); GLUCOSE 86 mg/dl (70-220); POTASSIUM 3.9 mmol/L (3.5-5.1); SODIUM 134 mmol/L (135-144); TOTAL PROTEIN 5.9 g/dl (6.1-8.1)
[2017-09-24 07:49] LABS: ALBUMIN 2.4 g/dl (3.3-4.9); ALBUMIN/GLOBULIN RATIO 0.68
[2017-09-24] MEDS: FOLIC ACID 1 MG TAB PO (08:30)
[2017-09-24] MEDS: DOCUSATE SODIUM 100 MG CAP PO ×3 (08:30→23:58)
[2017-09-24] MEDS: THIAMINE 100 MG TAB PO (08:31)
[2017-09-24] MEDS: TOPIRAMATE 25 MG TAB PO ×3 (08:31→23:57)
[2017-09-24] MEDS: MULTIVITAMINS THERAPEUTIC TAB PO (08:31)
[2017-09-24] MEDS: HEPARIN 5,000 UNIT/0.5 ML VIAL SC ×2 (08:33→20:52)
[2017-09-24] MEDS: CHLORDIAZEPOXIDE 5 MG CAP PO ×4 (08:35→21:00)
[2017-09-24 09:45] LABS: AMMONIA 108 umol/l (9-30)
[2017-09-24] MEDS: NEUTRA-PHOS 250 MG PACKET PO (11:01)
[2017-09-24 11:15] LABS: HAAIG REFLEX REFLEX FILED
[2017-09-24] MEDS: ALBUTEROL HFA 8 GM INHALER INH (11:56)
[2017-09-24 12:51] LABS: SODIUM,URINE RANDOM 16 mmol/L (30-90)
[2017-09-24 12:52] LABS: ADD UMIC YES; UR ASCORBIC ACID NEGATIVE (NEGATIVE); UR BACTERIA FEW /HPF (NONE SEEN); UR BILIRUBIN (Dip) 1+ mg/dL (NEGATIVE); UR BLOOD (Dip) 3+ mg/dL (NEGATIVE); UR CLARITY CLOUDY (CLEAR); UR COLOR AMBER (YELLOW); UR GLUCOSE (Dip) NEGATIVE (NEGATIVE); UR KETONES (Dip) NEGATIVE (NEGATIVE); UR LEUKOCYTE ESTERASE (Dip) 2+ Leu/ul (NEGATIVE); UR MUCUS FEW /HPF (NONE SEEN); UR NITRITE (Dip) NEGATIVE (NEGATIVE); UR RBC > 182 /HPF (0-5); UR SPECIFIC GRAVITY (Dip) 1.024 (1.003-1.030); UR SQUAMOUS EPITHELIAL CELL FEW /HPF (FEW); UR TOTAL PROTEIN (Dip) 2+ mg/dl (NEGATIVE); UR UROBILINOGEN (Dip) 2+ mg/dL (NEGATIVE); UR WBC > 182 /HPF (0-5)
[2017-09-24] MEDS: LEVALBUTEROL (NEB) 0.31 MG/3 ML AMP HHN ×2 (13:54→19:55)
[2017-09-24 15:05] LABS: COMPLEMENT C3 95 mg/dl (88-165); COMPLEMENT C4 25 mg/dl (14-44)
[2017-09-24 15:24] LABS: HEPATITIS B SURFACE ANTIGEN NEGATIVE (NEGATIVE)
[2017-09-24 15:42] LABS: HEPATITIS B CORE ANTIBODY NEGATIVE (NEGATIVE); HEPATITIS C VIRAL ANTIBODY NEGATIVE (NEGATIVE)
[2017-09-24] MEDS: MIDODRINE 2.5 MG TAB PO (17:40)
[2017-09-24] MEDS: RIFAXIMIN 550 MG TAB PO ×2 (20:50→23:59)
[2017-09-24 22:10] LABS: RHEUMATOID FACTOR NEGATIVE (NEGATIVE)
[2017-09-25] MEDS: LACTULOSE 30ML CUP PO ×4 (00:10→21:32)
[2017-09-25] MEDS: MIDODRINE 5 MG TAB PO ×3 (00:11→17:00)
[2017-09-25] MEDS: CEFOTAXIME IVPB ×2 (00:12→06:08)
[2017-09-25] MEDS: DEXTROSE 5% IVPB ×2 (00:12→06:08)
[2017-09-25] MEDS: HEPARIN 5,000 UNIT/0.5 ML VIAL SC ×3 (01:06→21:26)
[2017-09-25] MEDS: LEVALBUTEROL (NEB) 0.31 MG/3 ML AMP HHN ×4 (01:58→20:04)
[2017-09-25] MEDS: PANTOPRAZOLE (EC) 40 MG TAB PO (06:08)
[2017-09-25] MEDS: SPIRONOLACTONE 25 MG TAB PO (06:08)
[2017-09-25 06:20] LABS: ADD MAN DIFF? NO
[2017-09-25 06:25] LABS: BASOPHIL # 0.1 10^3/ul (0.0-0.1); BASOPHILS % 1.2 % (0.0-2.0); EOSINOPHILS # 0.4 10^3/ul (0.0-0.5); EOSINOPHILS % 4.6 % (0.0-7.0); HEMATOCRIT 27.5 % (37.0-47.0); HEMOGLOBIN 9.9 g/dl (12.0-16.0); LYMPHOCYTES # 1.8 10^3/ul (0.8-2.9); LYMPHOCYTES % 21.8 % (15.0-51.0); MEAN CORPUSCULAR HEMOGLOBIN 32.2 pg (29.0-33.0); MEAN CORPUSCULAR VOLUME 89.6 fl (82.0-101.0); MONOCYTE # 1.2 10^3/ul (0.3-0.9); MONOCYTES % 14.9 % (0.0-11.0); NEUTROPHIL # 4.5 10^3/ul (1.6-7.5); NEUTROPHILS % 56.1 % (39.0-77.0); NUCLEATED RED BLOOD CELLS% 0.5 /100WBC (0.0-0.0); PLATELET COUNT 139 10^3/UL (140-415); RED BLOOD COUNT 3.07 10^6/ul (4.20-5.40); RED CELL DISTRIBUTION WIDTH 17.5 % (11.5-14.5)
[2017-09-25 06:43] LABS: INR 1.55; PROTIME 18.9 Sec (11.9-14.9); PT RATIO 1.5
[2017-09-25 06:44] LABS: PARTIAL THROMBOPLASTIN TIME 48.8 Sec (25.0-35.0)
[2017-09-25 06:53] LABS: AMMONIA 71 umol/l (9-30)
[2017-09-25 06:56] LABS: ALANINE AMINOTRANSFERASE 88 IU/L (13-69); ALBUMIN/GLOBULIN RATIO 0.55; ALKALINE PHOSPHATASE 512 IU/L (42-121); ANION GAP 13 (8-16); ASPARTATE AMINO TRANSFERASE 153 IU/L (15-46); BILIRUBIN,TOTAL 4.8 mg/dl (0.2-1.3); BLOOD UREA NITROGEN 11 mg/dl (7-20); CALCIUM 6.7 mg/dl (8.4-10.2); CARBON DIOXIDE 21 mmol/L (21-31); CHLORIDE 103 mmol/L (97-110); CREATININE 3.04 mg/dl (0.44-1.00); GLUCOSE 76 mg/dl (70-220); POTASSIUM 3.8 mmol/L (3.5-5.1); SODIUM 133 mmol/L (135-144); TOTAL PROTEIN 5.6 g/dl (6.1-8.1)
[2017-09-25 07:29] LABS: MAGNESIUM 1.8 mg/dl (1.7-2.5)
[2017-09-25 07:29] LABS: PHOSPHORUS 1.5 mg/dl (2.5-4.9)
[2017-09-25] MEDS: DOCUSATE SODIUM 100 MG CAP PO ×3 (09:00→21:34)
[2017-09-25] MEDS ORDERED: MIDODRINE 5 MG TAB PO (09:00)
[2017-09-25] MEDS: THIAMINE 100 MG TAB PO (09:10)
[2017-09-25] MEDS: FOLIC ACID 1 MG TAB PO (09:10)
[2017-09-25] MEDS: TOPIRAMATE 25 MG TAB PO ×2 (09:10→21:20)
[2017-09-25] MEDS: MULTIVITAMINS THERAPEUTIC TAB PO (09:10)
[2017-09-25] MEDS: CHLORDIAZEPOXIDE 5 MG CAP PO ×3 (09:18→21:33)
[2017-09-25] MEDS: OCTREOTIDE 50 MCG INJ SC ×2 (09:23)
[2017-09-25] MEDS: ALBUMIN HUMAN 25% 100 ML IV (10:36)
[2017-09-25] MEDS: SODIUM PHOSPHATE 15 MMOL in SOD CHLORIDE 0.9% 250 ML IVPB (12:20)
[2017-09-25] MEDS: OCTREOTIDE 100 MCG INJ SC ×2 (13:52→21:29)
[2017-09-25 16:06] LABS: CREATININE, RANDOM URINE 371 mg/dL (20-320); MICROALBUMIN 55.5 mg/dL; MICROALBUMIN/CREATININE RATIO 150 (<30)
[2017-09-25] MEDS: RIFAXIMIN 550 MG TAB PO (21:20)
[2017-09-26] MEDS: LORAZEPAM 2 MG INJ IV ×2 (01:17→03:13)
[2017-09-26] MEDS: LEVALBUTEROL (NEB) 0.31 MG/3 ML AMP HHN ×5 (01:18→20:10)
[2017-09-26] MEDS: HALOPERIDOL 5 MG INJ IM (03:14)
[2017-09-26] MEDS ORDERED: DIPHENHYDRAMINE 50 MG INJ IM (04:27)
[2017-09-26] MEDS: PANTOPRAZOLE (EC) 40 MG TAB PO (06:00)
[2017-09-26] MEDS: LACTULOSE 30ML CUP PO ×3 (06:00→22:00)
[2017-09-26] MEDS: THIAMINE 100 MG TAB PO (10:20)
[2017-09-26] MEDS: FOLIC ACID 1 MG TAB PO (10:20)
[2017-09-26] MEDS: CHLORDIAZEPOXIDE 5 MG CAP PO (10:20)
[2017-09-26] MEDS: MIDODRINE 5 MG TAB PO ×3 (10:20→18:33)
[2017-09-26] MEDS: MULTIVITAMINS THERAPEUTIC TAB PO (10:20)
[2017-09-26] MEDS: RIFAXIMIN 550 MG TAB PO ×2 (10:21→20:53)
[2017-09-26] MEDS: TOPIRAMATE 25 MG TAB PO ×2 (10:49→20:53)
[2017-09-26] MEDS: HEPARIN 5,000 UNIT/0.5 ML VIAL SC (10:49)
[2017-09-26] MEDS: OCTREOTIDE 100 MCG INJ SC ×3 (10:49→20:59)
[2017-09-26 11:42] LABS: ADD MAN DIFF? NO
[2017-09-26 11:46] LABS: WHITE BLOOD COUNT 7.9 10^3/ul (4.8-10.8)
[2017-09-26 11:46] LABS: BASOPHIL # 0.1 10^3/ul (0.0-0.1); BASOPHILS % 1.1 % (0.0-2.0); EOSINOPHILS # 0.4 10^3/ul (0.0-0.5); EOSINOPHILS % 5.4 % (0.0-7.0); HEMOGLOBIN 9.8 g/dl (12.0-16.0); LYMPHOCYTES # 1.6 10^3/ul (0.8-2.9); MEAN CORPUSCULAR HEMOGLOBIN 31.5 pg (29.0-33.0); MEAN PLATELET VOLUME 10.8 fl (7.4-10.4); MONOCYTE # 1.3 10^3/ul (0.3-0.9); MONOCYTES % 16.2 % (0.0-11.0); NEUTROPHIL # 4.3 10^3/ul (1.6-7.5); NEUTROPHILS % 54.8 % (39.0-77.0); PLATELET COUNT 129 10^3/UL (140-415); RED BLOOD COUNT 3.11 10^6/ul (4.20-5.40); RED CELL DISTRIBUTION WIDTH 18.2 % (11.5-14.5)
[2017-09-26 12:05] LABS: AMMONIA 59 umol/l (9-30)
[2017-09-26 12:05] LABS: ALANINE AMINOTRANSFERASE 90 IU/L (13-69); ALBUMIN 2.2 g/dl (3.3-4.9); ALBUMIN/GLOBULIN RATIO 0.66; ALKALINE PHOSPHATASE 470 IU/L (42-121); ANION GAP 13 (8-16); ASPARTATE AMINO TRANSFERASE 130 IU/L (15-46); BILIRUBIN,INDIRECT 0.8 mg/dl (0-1.1); BILIRUBIN,TOTAL 4.3 mg/dl (0.2-1.3); BLOOD UREA NITROGEN 12 mg/dl (7-20); CALCIUM 6.8 mg/dl (8.4-10.2); CARBON DIOXIDE 21 mmol/L (21-31); CHLORIDE 103 mmol/L (97-110); CREATININE 3.15 mg/dl (0.44-1.00); GLUCOSE 96 mg/dl (70-220); POTASSIUM 3.4 mmol/L (3.5-5.1); SODIUM 134 mmol/L (135-144); TOTAL PROTEIN 5.5 g/dl (6.1-8.1)
[2017-09-26 12:06] LABS: MAGNESIUM 1.8 mg/dl (1.7-2.5)
[2017-09-26 12:06] LABS: PHOSPHORUS 1.7 mg/dl (2.5-4.9)
[2017-09-26] MEDS: HALOPERIDOL 5 MG INJ IV (12:45)
[2017-09-26] MEDS: LORAZEPAM 2 MG INJ IM (12:45)
[2017-09-26] MEDS: DEXTROSE 5% IVPB (12:55)
[2017-09-26] MEDS: CEFOTAXIME IVPB (12:55)
[2017-09-26 14:47] LABS: ANCA SCREEN NEGATIVE (NEGATIVE); MYELOPEROXIDASE ANTIBODY <1.0 AI; PROTEINASE-3 ANTIBODY <1.0 AI
[2017-09-26 15:36] LABS: ANA SCREEN NEGATIVE (NEGATIVE)
[2017-09-26] MEDS: POTASSIUM PHOSPHATE 15 MM in SOD CHLORIDE 0.9% 250 ML IVPB (16:39)
[2017-09-26] MEDS: DOCUSATE SODIUM 100 MG CAP PO (20:53)
[2017-09-27] MEDS: LEVALBUTEROL (NEB) 0.31 MG/3 ML AMP HHN ×4 (01:44→20:07)
[2017-09-27] MEDS: morphine LIQ (10 MG/5 ML) CUP PO (04:36)
[2017-09-27] MEDS: LACTULOSE 30ML CUP PO ×3 (06:00→22:00)
[2017-09-27] MEDS: THIAMINE 100 MG TAB PO ×2 (09:00→14:08)
[2017-09-27] MEDS: OCTREOTIDE 100 MCG INJ SC ×3 (09:00→21:00)
[2017-09-27] MEDS: DOCUSATE SODIUM 100 MG CAP PO ×3 (09:00→21:00)
[2017-09-27] MEDS: MULTIVITAMINS THERAPEUTIC TAB PO ×2 (09:00→14:07)
[2017-09-27] MEDS: TOPIRAMATE 25 MG TAB PO ×3 (09:00→21:00)
[2017-09-27] MEDS: MIDODRINE 5 MG TAB PO ×3 (09:00→18:12)
[2017-09-27] MEDS: FOLIC ACID 1 MG TAB PO ×2 (09:00→14:08)
[2017-09-27] MEDS: RIFAXIMIN 550 MG TAB PO ×3 (09:00→21:00)
[2017-09-27] MEDS: PANTOPRAZOLE (EC) 40 MG TAB PO ×2 (09:00→14:07)
[2017-09-27 11:23] LABS: WHITE BLOOD COUNT 8.4 10^3/ul (4.8-10.8)
[2017-09-27 11:23] LABS: ABNORMAL IP MESSAGE 1; HEMATOCRIT 28.2 % (37.0-47.0); HEMOGLOBIN 9.9 g/dl (12.0-16.0); MEAN CORPUSCULAR HEMOGLOBIN 32.1 pg (29.0-33.0); MEAN CORPUSCULAR HGB CONC 35.1 g/dl (32.0-37.0); MEAN CORPUSCULAR VOLUME 91.6 fl (82.0-101.0); MEAN PLATELET VOLUME 10.7 fl (7.4-10.4); NUCLEATED RED BLOOD CELLS% 0.2 /100WBC (0.0-0.0); PLATELET COUNT 131 10^3/UL (140-415); RED BLOOD COUNT 3.08 10^6/ul (4.20-5.40); RED CELL DISTRIBUTION WIDTH 18.8 % (11.5-14.5)
[2017-09-27 11:25] LABS: ADD MAN DIFF? YES; POSITIVE DIFF @See below
[2017-09-27 11:40] LABS: INR 1.62; PROTIME 19.6 Sec (11.9-14.9); PT RATIO 1.5
[2017-09-27 11:41] LABS: PARTIAL THROMBOPLASTIN TIME 39.5 Sec (25.0-35.0)
[2017-09-27 11:50] LABS: ALANINE AMINOTRANSFERASE 91 IU/L (13-69); ALBUMIN 2.3 g/dl (3.3-4.9); ALBUMIN/GLOBULIN RATIO 0.69; ALKALINE PHOSPHATASE 492 IU/L (42-121); ANION GAP 16 (8-16); ASPARTATE AMINO TRANSFERASE 138 IU/L (15-46); BILIRUBIN,INDIRECT 0.7 mg/dl (0-1.1); BILIRUBIN,TOTAL 3.8 mg/dl (0.2-1.3); BLOOD UREA NITROGEN 13 mg/dl (7-20); CALCIUM 6.8 mg/dl (8.4-10.2); CARBON DIOXIDE 21 mmol/L (21-31); CHLORIDE 102 mmol/L (97-110); CREATININE 3.69 mg/dl (0.44-1.00); GLUCOSE 93 mg/dl (70-220); POTASSIUM 3.5 mmol/L (3.5-5.1); SODIUM 135 mmol/L (135-144); TOTAL PROTEIN 5.6 g/dl (6.1-8.1)
[2017-09-27 11:52] LABS: ANISOCYTOSIS 1+ (0-0); BAND NEUTROPHILS #M 0.1 10^3/ul (0.0-0.6); BAND NEUTROPHILS % (M) 2 % (0-4); BASOPHIL #M 0.1 10^3/ul (0.0-0.0); BASOPHILS % (M) 2 % (0-2); EOSINOPHILS % (M) 8 % (0-7); ERYTHROBLAST% (NRBC) (M) 2 % (0-0); GIANT THROMBO% (M) 2 % (0-0); LYMPHOCYTES #M 1.5 10^3/ul (0.8-2.9); LYMPHOCYTES % (M) 18 % (15-51); MAGNESIUM 1.7 mg/dl (1.7-2.5); METAMYELOCYTES #M 0.1 10^3/ul (0.0-0.0); METAMYELOCYTES %M 2 % (0-0); MONOCYTE #M 1.3 10^3/ul (0.3-0.9); MONOCYTES % (M) 16 % (0-11); MYELOCYTES #M 0.5 10^3/ul (0.0-0.0); MYELOCYTES % (M) 7 % (0-0); PLATELET ESTIMATE DECREASED; POIKILOCYTOSIS 1+ (0-0); POLYCHROMASIA 1+ (0-0); SEG NEUT #M 3.8 10^3/ul (1.6-7.5); SEGMENTED NEUTROPHILS (M) % 45 % (39-77); SMUDGE%M 5 % (0-0); TARGET CELLS 2+ (0-0)
[2017-09-27 11:52] LABS: PHOSPHORUS 2.3 mg/dl (2.5-4.9)
[2017-09-27 12:16] LABS: AMMONIA 93 umol/l (9-30)
[2017-09-27] MEDS: DEXTROSE 5% IVPB (14:09)
[2017-09-27] MEDS: CEFOTAXIME IVPB (14:09)
[2017-09-27 14:42] LABS: ANTI-DNA (DOUBLE STRANDED) <95 U/mL (< 301)
[2017-09-28] MEDS: LEVALBUTEROL (NEB) 0.31 MG/3 ML AMP HHN ×4 (01:36→19:38)
[2017-09-28] MEDS: LACTULOSE 30ML CUP PO ×3 (06:00→21:15)
[2017-09-28] MEDS: PANTOPRAZOLE (EC) 40 MG TAB PO (06:00)
[2017-09-28 06:48] LABS: WHITE BLOOD COUNT 9.2 10^3/ul (4.8-10.8)
[2017-09-28 06:48] LABS: ABNORMAL IP MESSAGE 1; HEMATOCRIT 27.6 % (37.0-47.0); HEMOGLOBIN 9.7 g/dl (12.0-16.0); MEAN CORPUSCULAR HEMOGLOBIN 32.1 pg (29.0-33.0); MEAN CORPUSCULAR HGB CONC 35.1 g/dl (32.0-37.0); MEAN CORPUSCULAR VOLUME 91.4 fl (82.0-101.0); MEAN PLATELET VOLUME 10.5 fl (7.4-10.4); NUCLEATED RED BLOOD CELLS% 0.3 /100WBC (0.0-0.0); PLATELET COUNT 134 10^3/UL (140-415); RED BLOOD COUNT 3.02 10^6/ul (4.20-5.40); RED CELL DISTRIBUTION WIDTH 18.4 % (11.5-14.5)
[2017-09-28 06:49] LABS: ADD MAN DIFF? YES; POSITIVE DIFF @See below
[2017-09-28 07:07] LABS: AMMONIA 84 umol/l (9-30)
[2017-09-28 07:08] LABS: ALANINE AMINOTRANSFERASE 72 IU/L (13-69); ALBUMIN/GLOBULIN RATIO 0.55; ALKALINE PHOSPHATASE 465 IU/L (42-121); ANION GAP 15 (8-16); ASPARTATE AMINO TRANSFERASE 135 IU/L (15-46); BILIRUBIN,INDIRECT 0.7 mg/dl (0-1.1); BILIRUBIN,TOTAL 3.7 mg/dl (0.2-1.3); BLOOD UREA NITROGEN 14 mg/dl (7-20); CALCIUM 6.7 mg/dl (8.4-10.2); CARBON DIOXIDE 23 mmol/L (21-31); CHLORIDE 103 mmol/L (97-110); CREATININE 4.42 mg/dl (0.44-1.00); GLUCOSE 93 mg/dl (70-220); POTASSIUM 3.6 mmol/L (3.5-5.1); SODIUM 137 mmol/L (135-144); TOTAL PROTEIN 5.6 g/dl (6.1-8.1)
[2017-09-28 07:10] LABS: MAGNESIUM 1.7 mg/dl (1.7-2.5)
[2017-09-28 07:10] LABS: PHOSPHORUS 2.5 mg/dl (2.5-4.9)
[2017-09-28 09:04] LABS: ANISOCYTOSIS 2+ (0-0); BAND NEUTROPHILS #M 1.3 10^3/ul (0.0-0.6); BAND NEUTROPHILS % (M) 15 % (0-4); BASOPHILS % (M) 1 % (0-2); EOSINOPHILS % (M) 7 % (0-7); ERYTHROBLAST% (NRBC) (M) 1 % (0-0); LYMPHOCYTES #M 2.2 10^3/ul (0.8-2.9); LYMPHOCYTES % (M) 24 % (15-51); METAMYELOCYTES #M 0.1 10^3/ul (0.0-0.0); METAMYELOCYTES %M 2 % (0-0); MONOCYTE #M 1.1 10^3/ul (0.3-0.9); MONOCYTES % (M) 12 % (0-11); MYELOCYTES #M 0.3 10^3/ul (0.0-0.0); MYELOCYTES % (M) 4 % (0-0); PLATELET ESTIMATE NORMAL; POLYCHROMASIA 2+ (0-0); REACTIVE LYMPHOCYTES #M 0.1 10^3/ul (0.0-0.0); REACTIVE LYMPHOCYTES% (M) 2 % (0-0); SEG NEUT #M 3.2 10^3/ul (1.6-7.5); SEGMENTED NEUTROPHILS (M) % 33 % (39-77); SMUDGE%M 12 % (0-0)
[2017-09-28] MEDS: RIFAXIMIN 550 MG TAB PO ×2 (09:08→21:16)
[2017-09-28] MEDS: FOLIC ACID 1 MG TAB PO (09:08)
[2017-09-28] MEDS: MULTIVITAMINS THERAPEUTIC TAB PO (09:08)
[2017-09-28] MEDS: DOCUSATE SODIUM 100 MG CAP PO ×2 (09:08→21:15)
[2017-09-28] MEDS: THIAMINE 100 MG TAB PO (09:08)
[2017-09-28] MEDS: TOPIRAMATE 25 MG TAB PO ×2 (09:09→21:15)
[2017-09-28] MEDS: OCTREOTIDE 100 MCG INJ SC ×3 (09:11→21:16)
[2017-09-28] MEDS: MIDODRINE 5 MG TAB PO ×2 (09:11→17:11)
[2017-09-28] MEDS: CEFOTAXIME IVPB (12:14)
[2017-09-28] MEDS: DEXTROSE 5% IVPB (12:14)
[2017-09-28] MEDS: morphine LIQ (10 MG/5 ML) CUP PO (12:21)
[2017-09-28] MEDS: HEPARIN 1000 UNITS/ML 10 ML INJ CATHETER (13:12)
[2017-09-28] MEDS: LEVALBUTEROL (NEB) 0.63 MG/3 ML AMP HHN ×2 (13:45)
[2017-09-29] MEDS: morphine LIQ (10 MG/5 ML) CUP PO (01:26)
[2017-09-29] MEDS: LEVALBUTEROL (NEB) 0.31 MG/3 ML AMP HHN ×4 (02:00→19:37)
[2017-09-29] MEDS: LACTULOSE 30ML CUP PO ×4 (06:10→22:00)
[2017-09-29] MEDS: PANTOPRAZOLE (EC) 40 MG TAB PO (06:10)
[2017-09-29] MEDS: DOCUSATE SODIUM 100 MG CAP PO ×3 (08:51→21:29)
[2017-09-29] MEDS: RIFAXIMIN 550 MG TAB PO ×3 (08:51→21:29)
[2017-09-29] MEDS: FOLIC ACID 1 MG TAB PO (08:52)
[2017-09-29] MEDS: MULTIVITAMINS THERAPEUTIC TAB PO (08:52)
[2017-09-29] MEDS: TOPIRAMATE 25 MG TAB PO ×3 (08:52→21:29)
[2017-09-29] MEDS: THIAMINE 100 MG TAB PO (08:52)
[2017-09-29] MEDS: OCTREOTIDE 100 MCG INJ SC ×4 (08:54→21:29)
[2017-09-29] MEDS: MIDODRINE 5 MG TAB PO ×2 (08:57→17:37)
[2017-09-29 09:05] LABS: INR 1.59; PROTIME 19.3 Sec (11.9-14.9); PT RATIO 1.5
[2017-09-29 09:08] LABS: ALANINE AMINOTRANSFERASE 76 IU/L (13-69); ALBUMIN 2.5 g/dl (3.3-4.9); ALBUMIN/GLOBULIN RATIO 0.65; ALKALINE PHOSPHATASE 521 IU/L (42-121); ANION GAP 15 (8-16); ASPARTATE AMINO TRANSFERASE 140 IU/L (15-46); BILIRUBIN,INDIRECT 0.8 mg/dl (0-1.1); BILIRUBIN,TOTAL 4.7 mg/dl (0.2-1.3); BLOOD UREA NITROGEN 14 mg/dl (7-20); CARBON DIOXIDE 23 mmol/L (21-31); CHLORIDE 102 mmol/L (97-110); CREATININE 4.93 mg/dl (0.44-1.00); GLUCOSE 89 mg/dl (70-220); POTASSIUM 3.3 mmol/L (3.5-5.1); SODIUM 137 mmol/L (135-144); TOTAL PROTEIN 6.3 g/dl (6.1-8.1)
[2017-09-29] MEDS: CEFOTAXIME IVPB (13:40)
[2017-09-29] MEDS: DEXTROSE 5% IVPB (13:40)
[2017-09-30] MEDS: LEVALBUTEROL (NEB) 0.31 MG/3 ML AMP HHN ×4 (01:50→20:00)
[2017-09-30] MEDS: PANTOPRAZOLE (EC) 40 MG TAB PO (06:00)
[2017-09-30] MEDS: LACTULOSE ENEMA 1,000 ML BTL PR ×3 (07:30→20:00)
[2017-09-30 07:53] LABS: WHITE BLOOD COUNT 10.6 10^3/ul (4.8-10.8)
[2017-09-30 07:53] LABS: ABNORMAL IP MESSAGE 1; HEMATOCRIT 29.9 % (37.0-47.0); HEMOGLOBIN 10.3 g/dl (12.0-16.0); MEAN CORPUSCULAR HEMOGLOBIN 31.8 pg (29.0-33.0); MEAN CORPUSCULAR HGB CONC 34.4 g/dl (32.0-37.0); MEAN CORPUSCULAR VOLUME 92.3 fl (82.0-101.0); MEAN PLATELET VOLUME 10.8 fl (7.4-10.4); NUCLEATED RED BLOOD CELLS% 0.4 /100WBC (0.0-0.0); PLATELET COUNT 161 10^3/UL (140-415); RED BLOOD COUNT 3.24 10^6/ul (4.20-5.40); RED CELL DISTRIBUTION WIDTH 18.6 % (11.5-14.5)
[2017-09-30 07:57] LABS: ADD MAN DIFF? YES; POSITIVE DIFF @See below
[2017-09-30 08:11] LABS: ALANINE AMINOTRANSFERASE 60 IU/L (13-69); ALBUMIN 2.4 g/dl (3.3-4.9); ALKALINE PHOSPHATASE 484 IU/L (42-121); ANION GAP 17 (8-16); ASPARTATE AMINO TRANSFERASE 135 IU/L (15-46); BILIRUBIN,INDIRECT 0.9 mg/dl (0-1.1); BILIRUBIN,TOTAL 5.2 mg/dl (0.2-1.3); BLOOD UREA NITROGEN 15 mg/dl (7-20); CALCIUM 7.1 mg/dl (8.4-10.2); CARBON DIOXIDE 19 mmol/L (21-31); CHLORIDE 106 mmol/L (97-110); CREATININE 5.32 mg/dl (0.44-1.00); GLUCOSE 87 mg/dl (70-220); MAGNESIUM 1.8 mg/dl (1.7-2.5); PHOSPHORUS 2.7 mg/dl (2.5-4.9); POTASSIUM 3.4 mmol/L (3.5-5.1); SODIUM 139 mmol/L (135-144)
[2017-09-30] MEDS: RIFAXIMIN 550 MG TAB PO ×2 (09:00→21:50)
[2017-09-30] MEDS: MULTIVITAMINS THERAPEUTIC TAB PO (09:00)
[2017-09-30] MEDS: MIDODRINE 5 MG TAB PO ×2 (09:00→17:00)
[2017-09-30] MEDS: THIAMINE 100 MG TAB PO (09:00)
[2017-09-30] MEDS: DOCUSATE SODIUM 100 MG CAP PO ×2 (09:00→21:50)
[2017-09-30] MEDS: TOPIRAMATE 25 MG TAB PO ×2 (09:00→21:50)
[2017-09-30 09:09] LABS: ANISOCYTOSIS 1+ (0-0); BAND NEUTROPHILS #M 1.4 10^3/ul (0.0-0.6); BAND NEUTROPHILS % (M) 14 % (0-4); BASOPHIL #M 0.2 10^3/ul (0.0-0.0); BASOPHILS % (M) 2 % (0-2); EOSINOPHILS % (M) 5 % (0-7); LYMPHOCYTES % (M) 19 % (15-51); METAMYELOCYTES #M 0.2 10^3/ul (0.0-0.0); METAMYELOCYTES %M 2 % (0-0); MONOCYTE #M 1.8 10^3/ul (0.3-0.9); MONOCYTES % (M) 17 % (0-11); MYELOCYTES #M 0.5 10^3/ul (0.0-0.0); MYELOCYTES % (M) 5 % (0-0); PLATELET ESTIMATE NORMAL; POIKILOCYTOSIS 1+ (0-0); POLYCHROMASIA 1+ (0-0); REACTIVE LYMPHOCYTES #M 0.4 10^3/ul (0.0-0.0); REACTIVE LYMPHOCYTES% (M) 4 % (0-0); SEG NEUT #M 3.4 10^3/ul (1.6-7.5); SEGMENTED NEUTROPHILS (M) % 31 % (39-77); SMUDGE%M 15 % (0-0); TARGET CELLS 1+ (0-0)
[2017-09-30] MEDS: OCTREOTIDE 100 MCG INJ SC ×3 (10:24→21:51)
[2017-09-30] MEDS: FOLIC ACID 1 MG TAB PO (10:24)
[2017-09-30] MEDS: DEXTROSE 5% IVPB (13:14)
[2017-09-30] MEDS: CEFOTAXIME IVPB (13:14)
[2017-09-30] MEDS: PERMETHRIN 5% 60 GM CR TOP (14:39)
[2017-09-30] MEDS: HEPARIN 1000 UNITS/ML 10 ML INJ CATHETER (21:04)
[2017-10-01] MEDS: LACTULOSE ENEMA 1,000 ML BTL PR ×4 (00:39→18:04)
[2017-10-01] MEDS: LEVALBUTEROL (NEB) 0.31 MG/3 ML AMP HHN ×4 (01:33→19:56)
[2017-10-01] MEDS: PANTOPRAZOLE (EC) 40 MG TAB PO (06:40)
[2017-10-01] MEDS: LEVALBUTEROL (NEB) 0.63 MG/3 ML AMP HHN (07:55)
[2017-10-01] MEDS: DOCUSATE SODIUM 100 MG CAP PO ×2 (09:00→21:00)
[2017-10-01] MEDS: FOLIC ACID 1 MG TAB PO (09:00)
[2017-10-01] MEDS: THIAMINE 100 MG TAB PO (09:00)
[2017-10-01] MEDS: MIDODRINE 5 MG TAB PO ×2 (09:00→17:00)
[2017-10-01] MEDS: RIFAXIMIN 550 MG TAB PO ×2 (09:00→21:00)
[2017-10-01] MEDS: TOPIRAMATE 25 MG TAB PO ×2 (09:00→21:00)
[2017-10-01] MEDS: MULTIVITAMINS THERAPEUTIC TAB PO (09:00)
[2017-10-01] MEDS: OCTREOTIDE 100 MCG INJ SC ×3 (09:12→21:16)
[2017-10-01 09:13] LABS: WHITE BLOOD COUNT 10.2 10^3/ul (4.8-10.8)
[2017-10-01 09:13] LABS: ABNORMAL IP MESSAGE 1; HEMATOCRIT 28.1 % (37.0-47.0); MEAN CORPUSCULAR HEMOGLOBIN 32.2 pg (29.0-33.0); MEAN CORPUSCULAR HGB CONC 35.6 g/dl (32.0-37.0); MEAN CORPUSCULAR VOLUME 90.4 fl (82.0-101.0); MEAN PLATELET VOLUME 10.2 fl (7.4-10.4); NUCLEATED RED BLOOD CELLS% 0.5 /100WBC (0.0-0.0); PLATELET COUNT 154 10^3/UL (140-415); RED BLOOD COUNT 3.11 10^6/ul (4.20-5.40); RED CELL DISTRIBUTION WIDTH 18.7 % (11.5-14.5)
[2017-10-01 09:19] LABS: ADD MAN DIFF? YES; POSITIVE DIFF @See below
[2017-10-01 09:43] LABS: ANION GAP 17 (8-16); BLOOD UREA NITROGEN 13 mg/dl (7-20); CALCIUM 7.3 mg/dl (8.4-10.2); CARBON DIOXIDE 22 mmol/L (21-31); CHLORIDE 106 mmol/L (97-110); CREATININE 3.92 mg/dl (0.44-1.00); GLUCOSE 81 mg/dl (70-220); MAGNESIUM 1.8 mg/dl (1.7-2.5); PHOSPHORUS 2.5 mg/dl (2.5-4.9); POTASSIUM 3.6 mmol/L (3.5-5.1); SODIUM 141 mmol/L (135-144)
[2017-10-01 10:12] LABS: ANISOCYTOSIS 2+ (0-0); BAND NEUTROPHILS #M 1.5 10^3/ul (0.0-0.6); BAND NEUTROPHILS % (M) 15 % (0-4); BASOPHIL #M 0.2 10^3/ul (0.0-0.0); BASOPHILS % (M) 2 % (0-2); EOSINOPHILS % (M) 4 % (0-7); ERYTHROBLAST% (NRBC) (M) 2 % (0-0); GIANT THROMBO% (M) 1 % (0-0); LYMPHOCYTES #M 1.6 10^3/ul (0.8-2.9); LYMPHOCYTES % (M) 16 % (15-51); METAMYELOCYTES #M 0.7 10^3/ul (0.0-0.0); METAMYELOCYTES %M 7 % (0-0); MONOCYTE #M 1.4 10^3/ul (0.3-0.9); MONOCYTES % (M) 14 % (0-11); MYELOCYTES #M 0.7 10^3/ul (0.0-0.0); MYELOCYTES % (M) 7 % (0-0); PLATELET ESTIMATE NORMAL; POIKILOCYTOSIS 1+ (0-0); POLYCHROMASIA 3+ (0-0); PROMYELOCYTES #M 0.1 10^3/ul (0-0); PROMYELOCYTES % (M) 1 % (0-0); SEG NEUT #M 3.6 10^3/ul (1.6-7.5); SEGMENTED NEUTROPHILS (M) % 34 % (39-77); SMUDGE%M 10 % (0-0); TARGET CELLS 3+ (0-0)
[2017-10-01 14:25] LABS: AADO2 Arterial 73.7 mmHg (7.0-24.0); Allen Test ACCEPTAB; Arterial Base Excess -6.3 mmol/L (-3.0-3); Arterial Blood Gas Oxygen Sat 97.4 mmHG (95.0-98.0); Arterial COHb 0.3 % (0.0-3.0); Arterial Fraction of Oxyhgb 96.6 % (93.0-99.0); Arterial MetHb 0.5 % (0.0-1.5); Arterial Total Hemglobin 11.3 g/dl (12.0-18.0); Arterial pCO2 27.2 mmhg (35-45); MODE NASAL CANNULA; Site Left Radial
[2017-10-01 15:19] LABS: AMMONIA 81 umol/l (9-30)
[2017-10-01] MEDS: HEPARIN 1000 UNITS/ML 10 ML INJ CATHETER (17:19)
[2017-10-01] MEDS: DEXTROSE 5% IVPB (18:32)
[2017-10-01] MEDS: CEFOTAXIME IVPB (18:32)
[2017-10-01] MEDS: PERMETHRIN 5% 60 GM CR TOP (21:17)
[2017-10-02] MEDS: LEVALBUTEROL (NEB) 0.31 MG/3 ML AMP HHN ×4 (01:49→19:50)
[2017-10-02] MEDS: PANTOPRAZOLE (EC) 40 MG TAB PO (06:00)
[2017-10-02] MEDS: LACTULOSE ENEMA 1,000 ML BTL PR ×4 (06:11→17:54)
[2017-10-02] MEDS: RIFAXIMIN 550 MG TAB PO ×2 (09:00→21:00)
[2017-10-02] MEDS: TOPIRAMATE 25 MG TAB PO ×2 (09:00→21:00)
[2017-10-02] MEDS: DOCUSATE SODIUM 100 MG CAP PO ×2 (09:00→21:00)
[2017-10-02] MEDS: MULTIVITAMINS THERAPEUTIC TAB PO (09:00)
[2017-10-02] MEDS: FOLIC ACID 1 MG TAB PO (09:00)
[2017-10-02] MEDS: THIAMINE 100 MG TAB PO (09:00)
[2017-10-02] MEDS: MIDODRINE 5 MG TAB PO ×2 (09:00→18:02)
[2017-10-02] MEDS: OCTREOTIDE 100 MCG INJ SC ×3 (10:25→21:00)
[2017-10-02] MEDS: morphine LIQ (10 MG/5 ML) CUP PO (13:01)
[2017-10-02] MEDS: PERMETHRIN 1% 59 ML TOP (16:30)
[2017-10-02] MEDS: CEFOTAXIME IVPB (16:34)
[2017-10-02] MEDS: DEXTROSE 5% IVPB (16:34)
[2017-10-02] MEDS: HYDROmorphONE 0.5 MG/0.5 ML SYG IV (20:09)
[2017-10-03] MEDS: LACTULOSE ENEMA 1,000 ML BTL PR (00:43)
[2017-10-03] MEDS: LEVALBUTEROL (NEB) 0.31 MG/3 ML AMP HHN ×4 (02:26→20:55)
[2017-10-03] MEDS: PANTOPRAZOLE (EC) 40 MG TAB PO ×2 (05:47→17:34)
[2017-10-03] MEDS: LACTULOSE 30ML CUP NGT ×4 (05:47→23:01)
[2017-10-03 06:31] LABS: HEMATOCRIT 28.2 % (37.0-47.0); HEMOGLOBIN 9.7 g/dl (12.0-16.0); MEAN CORPUSCULAR HGB CONC 34.4 g/dl (32.0-37.0); MEAN CORPUSCULAR VOLUME 93.1 fl (82.0-101.0); MEAN PLATELET VOLUME 10.9 fl (7.4-10.4); NUCLEATED RED BLOOD CELLS% 0.6 /100WBC (0.0-0.0); PLATELET COUNT 164 10^3/UL (140-415); RED BLOOD COUNT 3.03 10^6/ul (4.20-5.40); RED CELL DISTRIBUTION WIDTH 19.5 % (11.5-14.5)
[2017-10-03 06:31] LABS: WHITE BLOOD COUNT 15.6 10^3/ul (4.8-10.8)
[2017-10-03 06:32] LABS: ABNORMAL IP MESSAGE 1
[2017-10-03 07:00] LABS: ADD MAN DIFF? YES; POSITIVE DIFF @See below
[2017-10-03 07:01] LABS: ANION GAP 19 (8-16); BLOOD UREA NITROGEN 12 mg/dl (7-20); CALCIUM 7.3 mg/dl (8.4-10.2); CARBON DIOXIDE 22 mmol/L (21-31); CHLORIDE 107 mmol/L (97-110); CREATININE 3.94 mg/dl (0.44-1.00); GLUCOSE 87 mg/dl (70-220); MAGNESIUM 1.8 mg/dl (1.7-2.5); PHOSPHORUS 3.4 mg/dl (2.5-4.9); POTASSIUM 4.3 mmol/L (3.5-5.1); SODIUM 144 mmol/L (135-144)
[2017-10-03] MEDS: OCTREOTIDE 100 MCG INJ SC ×3 (09:00→21:11)
[2017-10-03] MEDS: MULTIVITAMINS THERAPEUTIC TAB PO (09:05)
[2017-10-03] MEDS: RIFAXIMIN 550 MG TAB PO ×2 (09:05→21:10)
[2017-10-03] MEDS: DOCUSATE SODIUM 100 MG CAP PO ×2 (09:06→21:10)
[2017-10-03] MEDS: THIAMINE 100 MG TAB PO (09:06)
[2017-10-03] MEDS: FOLIC ACID 1 MG TAB PO (09:06)
[2017-10-03] MEDS: TOPIRAMATE 25 MG TAB PO ×2 (09:06→21:10)
[2017-10-03] MEDS: MIDODRINE 5 MG TAB PO ×2 (09:16→17:33)
[2017-10-03 09:17] LABS: ANISOCYTOSIS 2+ (0-0); BAND NEUTROPHILS #M 1.2 10^3/ul (0.0-0.6); BAND NEUTROPHILS % (M) 8 % (0-4); ERYTHROBLAST% (NRBC) (M) 1 % (0-0); LYMPHOCYTES #M 1.5 10^3/ul (0.8-2.9); LYMPHOCYTES % (M) 10 % (15-51); METAMYELOCYTES #M 0.1 10^3/ul (0.0-0.0); METAMYELOCYTES %M 1 % (0-0); MONOCYTE #M 0.4 10^3/ul (0.3-0.9); MONOCYTES % (M) 3 % (0-11); MYELOCYTES #M 0.1 10^3/ul (0.0-0.0); MYELOCYTES % (M) 1 % (0-0); PLATELET ESTIMATE NORMAL; POIKILOCYTOSIS 1+ (0-0); POLYCHROMASIA 3+ (0-0); REACTIVE LYMPHOCYTES #M 0.4 10^3/ul (0.0-0.0); REACTIVE LYMPHOCYTES% (M) 3 % (0-0); SEG NEUT #M 11.7 10^3/ul (1.6-7.5); SEGMENTED NEUTROPHILS (M) % 74 % (39-77)
[2017-10-03] MEDS: DEXTROSE 5% IVPB (14:32)
[2017-10-03] MEDS: CEFOTAXIME IVPB (14:32)
[2017-10-03 16:38] LABS: LACTIC ACID 2.8 mmol/L (0.5-2.0)
[2017-10-03] MEDS: PHYTONADIONE 10 MG/ML INJ SC (16:57)
[2017-10-03 17:08] LABS: INR 1.83; PROTIME 21.6 Sec (11.9-14.9); PT RATIO 1.7
[2017-10-03 19:30] LABS: LACTIC ACID 2.3 mmol/L (0.5-2.0)
[2017-10-03] MEDS: HEPARIN 1000 UNITS/ML 10 ML INJ CATHETER (19:51)
[2017-10-04] MEDS: LEVALBUTEROL (NEB) 0.31 MG/3 ML AMP HHN ×4 (02:06→20:45)
[2017-10-04] MEDS: PANTOPRAZOLE (EC) 40 MG TAB PO (05:23)
[2017-10-04] MEDS: LACTULOSE 30ML CUP NGT ×3 (05:23→18:00)
[2017-10-04 06:14] LABS: ADD MAN DIFF? NO
[2017-10-04 06:25] LABS: BASOPHIL # 0.1 10^3/ul (0.0-0.1); BASOPHILS % 0.6 % (0.0-2.0); EOSINOPHILS # 0.2 10^3/ul (0.0-0.5); EOSINOPHILS % 1.5 % (0.0-7.0); HEMATOCRIT 27.6 % (37.0-47.0); HEMOGLOBIN 9.6 g/dl (12.0-16.0); LYMPHOCYTES % 7.6 % (15.0-51.0); MEAN CORPUSCULAR HGB CONC 34.8 g/dl (32.0-37.0); MEAN PLATELET VOLUME 10.9 fl (7.4-10.4); MONOCYTE # 0.3 10^3/ul (0.3-0.9); NEUTROPHIL # 10.9 10^3/ul (1.6-7.5); NEUTROPHILS % 85.9 % (39.0-77.0); NUCLEATED RED BLOOD CELLS # 0.2 10^3/ul (0.0-0.0); NUCLEATED RED BLOOD CELLS% 1.7 /100WBC (0.0-0.0); PLATELET COUNT 153 10^3/UL (140-415); RED CELL DISTRIBUTION WIDTH 19.1 % (11.5-14.5)
[2017-10-04 06:25] LABS: WHITE BLOOD COUNT 12.7 10^3/ul (4.8-10.8)
[2017-10-04 06:41] LABS: ANION GAP 18 (8-16); BLOOD UREA NITROGEN 11 mg/dl (7-20); CALCIUM 7.5 mg/dl (8.4-10.2); CARBON DIOXIDE 23 mmol/L (21-31); CHLORIDE 106 mmol/L (97-110); CREATININE 3.79 mg/dl (0.44-1.00); GLUCOSE 105 mg/dl (70-220); POTASSIUM 3.7 mmol/L (3.5-5.1); SODIUM 143 mmol/L (135-144)
[2017-10-04 06:44] LABS: INR 1.91; PROTIME 22.3 Sec (11.9-14.9); PT RATIO 1.7
[2017-10-04] MEDS: MIDODRINE 5 MG TAB PO ×2 (09:01→18:08)
[2017-10-04] MEDS: RIFAXIMIN 550 MG TAB PO ×2 (09:01→21:40)
[2017-10-04] MEDS: DOCUSATE SODIUM 100 MG CAP PO ×2 (09:02→21:39)
[2017-10-04] MEDS: MULTIVITAMINS THERAPEUTIC TAB PO (09:02)
[2017-10-04] MEDS: THIAMINE 100 MG TAB PO (09:02)
[2017-10-04] MEDS: FOLIC ACID 1 MG TAB PO (09:02)
[2017-10-04] MEDS: OCTREOTIDE 100 MCG INJ SC ×3 (09:02→21:41)
[2017-10-04] MEDS: TOPIRAMATE 25 MG TAB PO ×2 (09:10→21:39)
[2017-10-04 13:03] LABS: AMMONIA 54 umol/l (9-30)
[2017-10-04] MEDS: CEFEPIME 2GM/50 ML (PMX) 50 ML IVPB (14:28)
[2017-10-04] MEDS: HYDROmorphONE 0.5 MG/0.5 ML SYG IV (14:35)
[2017-10-04] MEDS ORDERED: GENTAMICIN 120 MG/NS (PMX) 100 ML IVPB (15:00)
[2017-10-04] MEDS: DOXYCYCLINE 100 MG in SOD CHLORIDE 0.9% 250 ML IVPB (16:43)
[2017-10-04] MEDS: GENTAMICIN IVPB (18:08)
[2017-10-04] MEDS: DEXTROSE 5% IVPB (18:08)
[2017-10-04] MEDS: PANTOPRAZOLE 40 MG INJ IV (18:09)
[2017-10-04] MEDS ORDERED: CEFEPIME 2GM/50 ML (PMX) 50 ML IVPB ×2 (21:00)
[2017-10-05] MEDS: LACTULOSE 30ML CUP NGT ×5 (00:18→23:02)
[2017-10-05] MEDS: DOXYCYCLINE 100 MG in SOD CHLORIDE 0.9% 250 ML IVPB ×2 (00:40→09:47)
[2017-10-05] MEDS: LEVALBUTEROL (NEB) 0.31 MG/3 ML AMP HHN ×4 (02:28→20:00)
[2017-10-05] MEDS: PANTOPRAZOLE 40 MG INJ IV ×2 (05:19→17:59)
[2017-10-05 06:10] LABS: WHITE BLOOD COUNT 18.1 10^3/ul (4.8-10.8)
[2017-10-05 06:10] LABS: HEMATOCRIT 24.5 % (37.0-47.0); HEMOGLOBIN 8.4 g/dl (12.0-16.0); MEAN CORPUSCULAR HEMOGLOBIN 32.2 pg (29.0-33.0); MEAN CORPUSCULAR HGB CONC 34.3 g/dl (32.0-37.0); MEAN CORPUSCULAR VOLUME 93.9 fl (82.0-101.0); MEAN PLATELET VOLUME 11.4 fl (7.4-10.4); NUCLEATED RED BLOOD CELLS% 2.9 /100WBC (0.0-0.0); PLATELET COUNT 145 10^3/UL (140-415); RED BLOOD COUNT 2.61 10^6/ul (4.20-5.40); RED CELL DISTRIBUTION WIDTH 19.5 % (11.5-14.5)
[2017-10-05 06:23] LABS: ADD MAN DIFF? YES; POSITIVE DIFF @See below
[2017-10-05 06:57] LABS: ANION GAP 14 (8-16); BLOOD UREA NITROGEN 18 mg/dl (7-20); CALCIUM 7.3 mg/dl (8.4-10.2); CARBON DIOXIDE 26 mmol/L (21-31); CHLORIDE 107 mmol/L (97-110); CREATININE 4.87 mg/dl (0.44-1.00); GLUCOSE 151 mg/dl (70-220); POTASSIUM 3.4 mmol/L (3.5-5.1); SODIUM 144 mmol/L (135-144)
[2017-10-05] MEDS ORDERED: POTASSIUM CHLORIDE (SR) 20 MEQ TAB PO (07:41)
[2017-10-05] MEDS: DOCUSATE SODIUM 100 MG CAP PO ×2 (09:00→22:52)
[2017-10-05 09:29] LABS: ANISOCYTOSIS 2+ (0-0); BAND NEUTROPHILS #M 3.9 10^3/ul (0.0-0.6); BAND NEUTROPHILS % (M) 22 % (0-4); BASOPHIL #M 0.3 10^3/ul (0.0-0.0); BASOPHILS % (M) 2 % (0-2); ERYTHROBLAST% (NRBC) (M) 1 % (0-0); LYMPHOCYTES % (M) 6 % (15-51); MONOCYTE #M 0.3 10^3/ul (0.3-0.9); MONOCYTES % (M) 2 % (0-11); PLATELET ESTIMATE NORMAL; SEGMENTED NEUTROPHILS (M) % 68 % (39-77); SMUDGE%M 13 % (0-0)
[2017-10-05] MEDS: POTASSIUM CHLORIDE 20 MEQ POWDER FOR ORAL SOLN GTB (09:47)
[2017-10-05] MEDS: FOLIC ACID 1 MG TAB PO (09:48)
[2017-10-05] MEDS: MIDODRINE 5 MG TAB PO ×2 (09:49→16:21)
[2017-10-05] MEDS: THIAMINE 100 MG TAB PO (09:49)
[2017-10-05] MEDS: MULTIVITAMINS THERAPEUTIC TAB PO (09:49)
[2017-10-05] MEDS: RIFAXIMIN 550 MG TAB PO ×2 (09:49→22:53)
[2017-10-05] MEDS: OCTREOTIDE 100 MCG INJ SC ×3 (09:49→22:53)
[2017-10-05] MEDS: TOPIRAMATE 25 MG TAB PO ×2 (09:49→22:53)
[2017-10-05] MEDS ORDERED: VANCOMYCIN IV PER PHARMACY XX (13:30)
[2017-10-05] MEDS: MEROPENEM 500MG/50 ML (PMX) 50 ML IVPB (16:21)
[2017-10-05] MEDS: HEPARIN 1000 UNITS/ML 10 ML INJ CATHETER (16:25)
[2017-10-05] MEDS: VANCOMYCIN 2 GM in SOD CHLORIDE 0.9% 500 ML IVPB (17:59)
[2017-10-05] MEDS: LORAZEPAM 2 MG INJ IV (21:57)
[2017-10-05] MEDS: VANCOMYCIN 1 GM 250 ML IVPB (23:02)
[2017-10-06] MEDS: HYDROmorphONE 0.5 MG/0.5 ML SYG IV (00:14)
[2017-10-06] MEDS: LEVALBUTEROL (NEB) 0.31 MG/3 ML AMP HHN ×4 (02:08→20:11)
[2017-10-06] MEDS: MEROPENEM 500MG/50 ML (PMX) 50 ML IVPB ×2 (04:06→16:35)
[2017-10-06] MEDS: PANTOPRAZOLE 40 MG INJ IV ×2 (06:01→19:00)
[2017-10-06] MEDS: LACTULOSE 30ML CUP NGT ×3 (06:01→18:59)
[2017-10-06 06:05] LABS: ADD MAN DIFF? NO
[2017-10-06 06:13] LABS: ABNORMAL IP MESSAGE 1; HEMOGLOBIN 8.4 g/dl (12.0-16.0); MEAN CORPUSCULAR HEMOGLOBIN 31.6 pg (29.0-33.0); MEAN CORPUSCULAR HGB CONC 33.6 g/dl (32.0-37.0); MEAN PLATELET VOLUME 11.1 fl (7.4-10.4); NUCLEATED RED BLOOD CELLS% 2.7 /100WBC (0.0-0.0); PLATELET COUNT 126 10^3/UL (140-415); RED BLOOD COUNT 2.66 10^6/ul (4.20-5.40); RED CELL DISTRIBUTION WIDTH 19.7 % (11.5-14.5)
[2017-10-06 06:13] LABS: WHITE BLOOD COUNT 17.3 10^3/ul (4.8-10.8)
[2017-10-06 06:29] LABS: ANION GAP 13 (8-16); BLOOD UREA NITROGEN 20 mg/dl (7-20); CARBON DIOXIDE 27 mmol/L (21-31); CHLORIDE 108 mmol/L (97-110); CREATININE 4.63 mg/dl (0.44-1.00); GLUCOSE 112 mg/dl (70-220); POSITIVE DIFF @See below; POTASSIUM 3.7 mmol/L (3.5-5.1); SODIUM 144 mmol/L (135-144)
[2017-10-06 07:46] LABS: ANISOCYTOSIS 2+ (0-0); BAND NEUTROPHILS #M 1.9 10^3/ul (0.0-0.6); BAND NEUTROPHILS % (M) 11 % (0-4); EOSINOPHILS % (M) 5 % (0-7); ERYTHROBLAST% (NRBC) (M) 6 % (0-0); GIANT THROMBO% (M) 1 % (0-0); LYMPHOCYTES % (M) 6 % (15-51); MONOCYTE #M 0.8 10^3/ul (0.3-0.9); MONOCYTES % (M) 5 % (0-11); PLATELET ESTIMATE DECREASED; POLYCHROMASIA 2+ (0-0); REACTIVE LYMPHOCYTES #M 0.1 10^3/ul (0.0-0.0); REACTIVE LYMPHOCYTES% (M) 1 % (0-0); SEG NEUT #M 12.8 10^3/ul (1.6-7.5); SEGMENTED NEUTROPHILS (M) % 72 % (39-77); SMUDGE%M 7 % (0-0)
[2017-10-06] MEDS: TOPIRAMATE 25 MG TAB PO ×2 (10:24→21:41)
[2017-10-06] MEDS: FOLIC ACID 1 MG TAB PO (10:24)
[2017-10-06] MEDS: RIFAXIMIN 550 MG TAB PO ×2 (10:24→21:39)
[2017-10-06] MEDS: MULTIVITAMINS THERAPEUTIC TAB PO (10:25)
[2017-10-06] MEDS: DOCUSATE SODIUM 100 MG CAP PO ×2 (10:25→21:00)
[2017-10-06] MEDS: THIAMINE 100 MG TAB PO (10:25)
[2017-10-06] MEDS: OCTREOTIDE 100 MCG INJ SC ×3 (10:33→21:40)
[2017-10-06] MEDS: MIDODRINE 5 MG TAB PO ×2 (10:33→16:42)
[2017-10-07] MEDS: LEVALBUTEROL (NEB) 0.31 MG/3 ML AMP HHN ×4 (01:47→19:45)
[2017-10-07] MEDS: MEROPENEM 500MG/50 ML (PMX) 50 ML IVPB ×3 (04:35→20:26)
[2017-10-07 05:57] LABS: ADD MAN DIFF? NO
[2017-10-07 06:01] LABS: BASOPHIL # 0.1 10^3/ul (0.0-0.1); EOSINOPHILS # 0.6 10^3/ul (0.0-0.5); EOSINOPHILS % 4.1 % (0.0-7.0); HEMATOCRIT 27.2 % (37.0-47.0); HEMOGLOBIN 9.3 g/dl (12.0-16.0); LYMPHOCYTES # 1.5 10^3/ul (0.8-2.9); LYMPHOCYTES % 10.7 % (15.0-51.0); MEAN CORPUSCULAR HEMOGLOBIN 31.8 pg (29.0-33.0); MEAN CORPUSCULAR HGB CONC 34.2 g/dl (32.0-37.0); MEAN CORPUSCULAR VOLUME 93.2 fl (82.0-101.0); MEAN PLATELET VOLUME 11.7 fl (7.4-10.4); MONOCYTE # 1.2 10^3/ul (0.3-0.9); MONOCYTES % 8.9 % (0.0-11.0); NEUTROPHIL # 9.6 10^3/ul (1.6-7.5); NEUTROPHILS % 71.3 % (39.0-77.0); NUCLEATED RED BLOOD CELLS # 0.2 10^3/ul (0.0-0.0); NUCLEATED RED BLOOD CELLS% 1.7 /100WBC (0.0-0.0); PLATELET COUNT 114 10^3/UL (140-415); RED BLOOD COUNT 2.92 10^6/ul (4.20-5.40)
[2017-10-07 06:01] LABS: WHITE BLOOD COUNT 13.5 10^3/ul (4.8-10.8)
[2017-10-07 06:02] LABS: POSITIVE DIFF @See below
[2017-10-07 06:11] LABS: ANION GAP 14 (8-16); BLOOD UREA NITROGEN 30 mg/dl (7-20); CALCIUM 7.3 mg/dl (8.4-10.2); CARBON DIOXIDE 25 mmol/L (21-31); CHLORIDE 109 mmol/L (97-110); CREATININE 5.26 mg/dl (0.44-1.00); GLUCOSE 126 mg/dl (70-220); POTASSIUM 3.5 mmol/L (3.5-5.1); SODIUM 144 mmol/L (135-144)
[2017-10-07 06:34] LABS: VANCOMYCIN,RANDOM 14.2 ug/ml
[2017-10-07 06:39] LABS: MAGNESIUM 1.9 mg/dl (1.7-2.5)
[2017-10-07 06:39] LABS: PHOSPHORUS 1.5 mg/dl (2.5-4.9)
[2017-10-07] MEDS: LACTULOSE 30ML CUP NGT ×4 (06:42→17:20)
[2017-10-07] MEDS: PANTOPRAZOLE 40 MG INJ IV ×2 (06:42→17:19)
[2017-10-07] MEDS: OCTREOTIDE 100 MCG INJ SC ×3 (08:22→20:27)
[2017-10-07] MEDS: THIAMINE 100 MG TAB PO (08:22)
[2017-10-07] MEDS: MULTIVITAMINS THERAPEUTIC TAB PO (08:22)
[2017-10-07] MEDS: RIFAXIMIN 550 MG TAB PO ×2 (08:22→20:27)
[2017-10-07] MEDS: DOCUSATE SODIUM 100 MG CAP PO ×2 (08:22→20:28)
[2017-10-07] MEDS: TOPIRAMATE 25 MG TAB PO ×2 (08:22→20:27)
[2017-10-07] MEDS: FOLIC ACID 1 MG TAB PO (08:22)
[2017-10-07] MEDS: MIDODRINE 5 MG TAB PO ×2 (08:30→17:20)
[2017-10-07] MEDS: POTASSIUM PHOSPHATE 20 MEQ in SOD CHLORIDE 0.9% 250 ML IVPB (10:51)
[2017-10-07] MEDS: HYDROmorphONE 0.5 MG/0.5 ML SYG IV (11:25)
[2017-10-07] MEDS: VANCOMYCIN 1.5 GM in SOD CHLORIDE 0.9% 250 ML IVPB (14:17)
[2017-10-07] MEDS: ACETAMINOPHEN 500 MG TAB PO (17:19)
[2017-10-08] MEDS: HYDROmorphONE 0.5 MG/0.5 ML SYG IV (00:16)
[2017-10-08] MEDS: ALBUMIN HUMAN 25% 100 ML IV ×2 (00:17→23:17)
[2017-10-08] MEDS: LACTULOSE 30ML CUP NGT ×4 (00:43→17:55)
[2017-10-08] MEDS: LEVALBUTEROL (NEB) 0.31 MG/3 ML AMP HHN ×4 (01:19→20:21)
[2017-10-08] MEDS: MEROPENEM 500MG/50 ML (PMX) 50 ML IVPB ×2 (04:34→16:00)
[2017-10-08] MEDS: PANTOPRAZOLE 40 MG INJ IV ×2 (05:45→17:55)
[2017-10-08] MEDS: OCTREOTIDE 100 MCG INJ SC ×3 (09:00→20:27)
[2017-10-08] MEDS: TOPIRAMATE 25 MG TAB PO ×2 (09:00→20:26)
[2017-10-08 09:05] LABS: ADD MAN DIFF? NO
[2017-10-08 09:10] LABS: WHITE BLOOD COUNT 14.7 10^3/ul (4.8-10.8)
[2017-10-08 09:10] LABS: ABNORMAL IP MESSAGE 1; BASOPHIL # 0.2 10^3/ul (0.0-0.1); BASOPHILS % 1.2 % (0.0-2.0); EOSINOPHILS # 0.4 10^3/ul (0.0-0.5); EOSINOPHILS % 2.5 % (0.0-7.0); HEMATOCRIT 26.9 % (37.0-47.0); HEMOGLOBIN 9.1 g/dl (12.0-16.0); LYMPHOCYTES # 1.5 10^3/ul (0.8-2.9); LYMPHOCYTES % 10.4 % (15.0-51.0); MEAN CORPUSCULAR HEMOGLOBIN 31.9 pg (29.0-33.0); MEAN CORPUSCULAR HGB CONC 33.8 g/dl (32.0-37.0); MEAN CORPUSCULAR VOLUME 94.4 fl (82.0-101.0); MEAN PLATELET VOLUME 11.6 fl (7.4-10.4); MONOCYTE # 1.8 10^3/ul (0.3-0.9); MONOCYTES % 12.1 % (0.0-11.0); NEUTROPHIL # 10.2 10^3/ul (1.6-7.5); NEUTROPHILS % 69.1 % (39.0-77.0); NUCLEATED RED BLOOD CELLS # 0.1 10^3/ul (0.0-0.0); NUCLEATED RED BLOOD CELLS% 0.7 /100WBC (0.0-0.0); PLATELET COUNT 104 10^3/UL (140-415); RED BLOOD COUNT 2.85 10^6/ul (4.20-5.40); RED CELL DISTRIBUTION WIDTH 19.9 % (11.5-14.5)
[2017-10-08 09:16] LABS: POSITIVE DIFF @See below
[2017-10-08 09:32] LABS: ANION GAP 14 (8-16); BLOOD UREA NITROGEN 38 mg/dl (7-20); CALCIUM 7.3 mg/dl (8.4-10.2); CARBON DIOXIDE 27 mmol/L (21-31); CHLORIDE 111 mmol/L (97-110); CREATININE 6.46 mg/dl (0.44-1.00); GLUCOSE 104 mg/dl (70-220); POTASSIUM 3.8 mmol/L (3.5-5.1); SODIUM 148 mmol/L (135-144)
[2017-10-08] MEDS: MIDODRINE 5 MG TAB PO ×3 (09:36→20:26)
[2017-10-08] MEDS: THIAMINE 100 MG TAB PO (09:36)
[2017-10-08] MEDS: RIFAXIMIN 550 MG TAB PO ×2 (09:36→20:26)
[2017-10-08] MEDS: MULTIVITAMINS THERAPEUTIC TAB PO (09:37)
[2017-10-08] MEDS: FOLIC ACID 1 MG TAB PO (09:37)
[2017-10-08] MEDS: DOCUSATE SODIUM 100 MG CAP PO ×2 (09:37→20:26)
[2017-10-08] MEDS: SOD CHLORIDE 0.9% 1,000 ML IV (13:30)
[2017-10-08] MEDS ORDERED: ALBUMIN HUMAN 25% 100 ML IV (22:30)
[2017-10-09] MEDS: LEVALBUTEROL (NEB) 0.31 MG/3 ML AMP HHN ×4 (01:46→20:12)
[2017-10-09] MEDS: MEROPENEM 500MG/50 ML (PMX) 50 ML IVPB ×2 (03:06→17:58)
[2017-10-09] MEDS: HYDROmorphONE 0.5 MG/0.5 ML SYG IV (03:10)
[2017-10-09] MEDS: PANTOPRAZOLE 40 MG INJ IV ×2 (05:49→17:58)
[2017-10-09] MEDS: LACTULOSE 30ML CUP NGT ×4 (05:50→17:58)
[2017-10-09 06:23] LABS: ABNORMAL IP MESSAGE 1; HEMOGLOBIN 9.5 g/dl (12.0-16.0); MEAN CORPUSCULAR HGB CONC 33.9 g/dl (32.0-37.0); MEAN CORPUSCULAR VOLUME 94.3 fl (82.0-101.0); NUCLEATED RED BLOOD CELLS% 0.4 /100WBC (0.0-0.0); PLATELET COUNT 89 10^3/UL (140-415); RED BLOOD COUNT 2.97 10^6/ul (4.20-5.40); RED CELL DISTRIBUTION WIDTH 20.4 % (11.5-14.5)
[2017-10-09 06:23] LABS: WHITE BLOOD COUNT 12.4 10^3/ul (4.8-10.8)
[2017-10-09 06:49] LABS: POSITIVE DIFF @See below
[2017-10-09 06:50] LABS: ADD MAN DIFF? YES
[2017-10-09 06:59] LABS: ANION GAP 12 (8-16); BLOOD UREA NITROGEN 29 mg/dl (7-20); CALCIUM 7.1 mg/dl (8.4-10.2); CARBON DIOXIDE 28 mmol/L (21-31); CHLORIDE 109 mmol/L (97-110); CREATININE 4.81 mg/dl (0.44-1.00); GLUCOSE 104 mg/dl (70-220); PHOSPHORUS 1.5 mg/dl (2.5-4.9); POTASSIUM 3.5 mmol/L (3.5-5.1); SODIUM 145 mmol/L (135-144)
[2017-10-09] MEDS ORDERED: POTASSIUM PHOSPHATE 20 MEQ in SOD CHLORIDE 0.9% 250 ML IVPB (08:30)
[2017-10-09 09:08] LABS: ANISOCYTOSIS 2+ (0-0); BAND NEUTROPHILS #M 0.8 10^3/ul (0.0-0.6); BAND NEUTROPHILS % (M) 7 % (0-4); BASOPHIL #M 0.7 10^3/ul (0.0-0.0); BASOPHILS % (M) 6 % (0-2); EOSINOPHILS % (M) 9 % (0-7); GIANT THROMBO% (M) 1 % (0-0); LYMPHOCYTES #M 3.2 10^3/ul (0.8-2.9); LYMPHOCYTES % (M) 26 % (15-51); METAMYELOCYTES #M 0.1 10^3/ul (0.0-0.0); METAMYELOCYTES %M 1 % (0-0); MONOCYTE #M 1.1 10^3/ul (0.3-0.9); MONOCYTES % (M) 9 % (0-11); MYELOCYTES #M 0.1 10^3/ul (0.0-0.0); MYELOCYTES % (M) 1 % (0-0); PLATELET ESTIMATE DECREASED; POLYCHROMASIA 3+ (0-0); SEG NEUT #M 5.3 10^3/ul (1.6-7.5); SEGMENTED NEUTROPHILS (M) % 42 % (39-77); SMUDGE%M 21 % (0-0)
[2017-10-09] MEDS: THIAMINE 100 MG TAB PO (10:00)
[2017-10-09] MEDS: MIDODRINE 5 MG TAB PO ×3 (10:00→21:10)
[2017-10-09] MEDS: RIFAXIMIN 550 MG TAB PO ×2 (10:00→21:10)
[2017-10-09] MEDS: TOPIRAMATE 25 MG TAB PO ×2 (10:00→21:10)
[2017-10-09] MEDS: DOCUSATE SODIUM 100 MG CAP PO ×2 (10:01→21:10)
[2017-10-09] MEDS: OCTREOTIDE 100 MCG INJ SC ×3 (10:01→21:09)
[2017-10-09] MEDS: FOLIC ACID 1 MG TAB PO (10:01)
[2017-10-09] MEDS: MULTIVITAMINS THERAPEUTIC TAB PO (10:01)
[2017-10-09] MEDS: HEPARIN 1000 UNITS/ML 10 ML INJ CATHETER (17:54)
[2017-10-09] MEDS: POTASSIUM PHOSPHATE 20 MEQ in SOD CHLORIDE 0.9% 250 ML IVPB (17:58)
[2017-10-09] MEDS: LORAZEPAM 2 MG INJ IV ×2 (18:14→22:18)
[2017-10-10] MEDS: LACTULOSE 30ML CUP NGT ×4 (00:16→18:06)
[2017-10-10] MEDS: LEVALBUTEROL (NEB) 0.31 MG/3 ML AMP HHN ×4 (01:06→20:05)
[2017-10-10] MEDS: MEROPENEM 500MG/50 ML (PMX) 50 ML IVPB ×2 (04:09→16:37)
[2017-10-10 06:11] LABS: ADD MAN DIFF? NO
[2017-10-10] MEDS: PANTOPRAZOLE 40 MG INJ IV ×2 (06:11→18:06)
[2017-10-10 06:55] LABS: ANION GAP 12 (8-16); BLOOD UREA NITROGEN 26 mg/dl (7-20); CALCIUM 7.3 mg/dl (8.4-10.2); CARBON DIOXIDE 29 mmol/L (21-31); CHLORIDE 109 mmol/L (97-110); CREATININE 4.45 mg/dl (0.44-1.00); GLUCOSE 106 mg/dl (70-220); MAGNESIUM 1.9 mg/dl (1.7-2.5); POTASSIUM 3.5 mmol/L (3.5-5.1); SODIUM 146 mmol/L (135-144)
[2017-10-10 07:03] LABS: VANCOMYCIN,RANDOM 11.7 ug/ml
[2017-10-10] MEDS: MIDODRINE 5 MG TAB PO ×3 (08:40→21:46)
[2017-10-10] MEDS: MULTIVITAMINS THERAPEUTIC TAB PO (08:40)
[2017-10-10] MEDS: THIAMINE 100 MG TAB PO (08:40)
[2017-10-10] MEDS: FOLIC ACID 1 MG TAB PO (08:40)
[2017-10-10] MEDS: RIFAXIMIN 550 MG TAB PO ×2 (08:40→21:46)
[2017-10-10] MEDS: DOCUSATE SODIUM 100 MG CAP PO ×2 (08:40→20:41)
[2017-10-10] MEDS: TOPIRAMATE 25 MG TAB PO ×2 (08:40→21:46)
[2017-10-10] MEDS: POTASSIUM PHOSPHATE 20 MEQ in SOD CHLORIDE 0.9% 250 ML IVPB (09:56)
[2017-10-10 10:13] LABS: WHITE BLOOD COUNT 12.6 10^3/ul (4.8-10.8)
[2017-10-10 10:13] LABS: ABNORMAL IP MESSAGE 1; BASOPHIL # 0.2 10^3/ul (0.0-0.1); BASOPHILS % 1.7 % (0.0-2.0); EOSINOPHILS # 0.7 10^3/ul (0.0-0.5); EOSINOPHILS % 5.3 % (0.0-7.0); HEMATOCRIT 27.2 % (37.0-47.0); HEMOGLOBIN 9.5 g/dl (12.0-16.0); LYMPHOCYTES # 2.6 10^3/ul (0.8-2.9); LYMPHOCYTES % 20.3 % (15.0-51.0); MEAN CORPUSCULAR HEMOGLOBIN 32.6 pg (29.0-33.0); MEAN CORPUSCULAR HGB CONC 34.9 g/dl (32.0-37.0); MEAN CORPUSCULAR VOLUME 93.5 fl (82.0-101.0); MEAN PLATELET VOLUME 12.2 fl (7.4-10.4); MONOCYTE # 1.9 10^3/ul (0.3-0.9); MONOCYTES % 14.7 % (0.0-11.0); NEUTROPHIL # 6.3 10^3/ul (1.6-7.5); NEUTROPHILS % 49.8 % (39.0-77.0); NUCLEATED RED BLOOD CELLS # 0.1 10^3/ul (0.0-0.0); NUCLEATED RED BLOOD CELLS% 0.6 /100WBC (0.0-0.0); PLATELET COUNT 131 10^3/UL (140-415); RED BLOOD COUNT 2.91 10^6/ul (4.20-5.40); RED CELL DISTRIBUTION WIDTH 20.4 % (11.5-14.5)
[2017-10-10 10:19] LABS: POSITIVE DIFF @See below
[2017-10-10] MEDS: NEUTRA-PHOS 250 MG PACKET NGT ×2 (13:05→21:46)
[2017-10-10] MEDS: VANCOMYCIN 2 GM in SOD CHLORIDE 0.9% 500 ML IVPB (14:17)
[2017-10-10] MEDS ORDERED: IVERMECTIN 3 MG TAB PO (19:00)
[2017-10-10] MEDS: HYDROmorphONE 0.5 MG/0.5 ML SYG IV (21:47)
[2017-10-11] MEDS: LACTULOSE 30ML CUP NGT ×4 (01:43→18:09)
[2017-10-11] MEDS: LEVALBUTEROL (NEB) 0.31 MG/3 ML AMP HHN ×4 (02:00→20:00)
[2017-10-11] MEDS: MEROPENEM 500MG/50 ML (PMX) 50 ML IVPB ×2 (04:22→19:16)
[2017-10-11] MEDS: ACETAMINOPHEN 500 MG TAB PO (05:16)
[2017-10-11] MEDS: PANTOPRAZOLE 40 MG INJ IV ×2 (05:16→18:09)
[2017-10-11 05:47] LABS: AADO2 Arterial 114.1 mmHg (7.0-24.0); Allen Test ACCEPTAB; Arterial Base Excess 1.5 mmol/L (-3.0-3); Arterial Blood Gas Oxygen Sat 93.5 mmHG (95.0-98.0); Arterial COHb 0.5 % (0.0-3.0); Arterial Fraction of Oxyhgb 92.8 % (93.0-99.0); Arterial HCO3 26.6 mmol/L (22.0-26.0); Arterial MetHb 0.2 % (0.0-1.5); Arterial Total Hemglobin 10.2 g/dl (12.0-18.0); Arterial pCO2 44.2 mmhg (35-45); MODE NASAL CANNULA; Site Right Radial
[2017-10-11 06:41] LABS: ABNORMAL IP MESSAGE 1; HEMATOCRIT 19.9 % (37.0-47.0); MEAN CORPUSCULAR HGB CONC 34.2 g/dl (32.0-37.0); MEAN CORPUSCULAR VOLUME 96.6 fl (82.0-101.0); MEAN PLATELET VOLUME 12.2 fl (7.4-10.4); NUCLEATED RED BLOOD CELLS% 0.6 /100WBC (0.0-0.0); PLATELET COUNT 191 10^3/UL (140-415); RED BLOOD COUNT 2.06 10^6/ul (4.20-5.40); RED CELL DISTRIBUTION WIDTH 20.9 % (11.5-14.5)
[2017-10-11 06:41] LABS: WHITE BLOOD COUNT 19.6 10^3/ul (4.8-10.8)
[2017-10-11 06:51] LABS: ANION GAP 16 (8-16); BLOOD UREA NITROGEN 34 mg/dl (7-20); CALCIUM 7.4 mg/dl (8.4-10.2); CARBON DIOXIDE 26 mmol/L (21-31); CHLORIDE 110 mmol/L (97-110); CREATININE 5.53 mg/dl (0.44-1.00); GLUCOSE 108 mg/dl (70-220); MAGNESIUM 2.1 mg/dl (1.7-2.5); PHOSPHORUS 1.9 mg/dl (2.5-4.9); SODIUM 148 mmol/L (135-144)
[2017-10-11 07:07] LABS: LACTIC ACID 3.9 mmol/L (0.5-2.0)
[2017-10-11 07:19] LABS: HEMOGLOBIN 6.8 g/dl (12.0-16.0)
[2017-10-11 07:20] LABS: ADD MAN DIFF? YES; POSITIVE DIFF @See below
[2017-10-11] MEDS: SOD CHLORIDE 0.9% 500 ML IV (07:42)
[2017-10-11 08:38] LABS: HEMATOCRIT 25.2 % (37.0-47.0); HEMOGLOBIN 8.5 g/dl (12.0-16.0)
[2017-10-11 09:27] LABS: LACTIC ACID 3.5 mmol/L (0.5-2.0)
[2017-10-11] MEDS: ALBUMIN HUMAN 25% 100 ML IV (09:35)
[2017-10-11] MEDS: FOLIC ACID 1 MG TAB PO (09:44)
[2017-10-11] MEDS: THIAMINE 100 MG TAB PO (09:44)
[2017-10-11] MEDS: DOCUSATE SODIUM 100 MG CAP PO ×2 (09:44→21:17)
[2017-10-11] MEDS: MULTIVITAMINS THERAPEUTIC TAB PO (09:44)
[2017-10-11] MEDS: MIDODRINE 5 MG TAB PO ×3 (09:45→21:19)
[2017-10-11] MEDS: NEUTRA-PHOS 250 MG PACKET NGT ×3 (09:45→21:18)
[2017-10-11] MEDS: TOPIRAMATE 25 MG TAB PO ×2 (11:21→21:18)
[2017-10-11] MEDS: IVERMECTIN 3 MG TAB GTB (11:22)
[2017-10-11] MEDS: RIFAXIMIN 550 MG TAB PO ×2 (11:23→21:18)
[2017-10-11 12:36] LABS: ANISOCYTOSIS 2+ (0-0); BAND NEUTROPHILS #M 1.7 10^3/ul (0.0-0.6); BAND NEUTROPHILS % (M) 9 % (0-4); BASOPHIL #M 0.7 10^3/ul (0.0-0.0); BASOPHILS % (M) 4 % (0-2); EOSINOPHILS % (M) 5 % (0-7); GIANT THROMBO% (M) 4 % (0-0); HYPOCHROMASIA 1+ (0-0); LYMPHOCYTES #M 2.1 10^3/ul (0.8-2.9); LYMPHOCYTES % (M) 11 % (15-51); METAMYELOCYTES #M 0.3 10^3/ul (0.0-0.0); METAMYELOCYTES %M 2 % (0-0); MONOCYTE #M 2.3 10^3/ul (0.3-0.9); MONOCYTES % (M) 12 % (0-11); MYELOCYTES #M 0.9 10^3/ul (0.0-0.0); MYELOCYTES % (M) 5 % (0-0); PLASMA CELLS #M 0.1 10^3/ul (0.0-0.0); PLASMAC%(M) 1 % (0); PLATELET ESTIMATE NORMAL; POIKILOCYTOSIS 2+ (0-0); POLYCHROMASIA 2+ (0-0); REACTIVE LYMPHOCYTES #M 0.1 10^3/ul (0.0-0.0); REACTIVE LYMPHOCYTES% (M) 1 % (0-0); SEG NEUT #M 9.9 10^3/ul (1.6-7.5); SEGMENTED NEUTROPHILS (M) % 49 % (39-77); SMUDGE%M 14 % (0-0); TARGET CELLS 3+ (0-0)
[2017-10-11] MEDS: POTASSIUM PHOSPHATE 20 MEQ in SOD CHLORIDE 0.9% 250 ML IVPB (12:56)
[2017-10-11] MEDS: PERMETHRIN 1% 59 ML TOP (18:13)
[2017-10-11] MEDS: LEVALBUTEROL (NEB) 0.63 MG/3 ML AMP HHN (20:18)
[2017-10-11] MEDS: LORAZEPAM 2 MG INJ IV (23:48)
[2017-10-12] MEDS: LACTULOSE 30ML CUP NGT ×4 (00:44→18:14)
[2017-10-12] MEDS: LEVALBUTEROL (NEB) 0.63 MG/3 ML AMP HHN (01:40)
[2017-10-12] MEDS: LEVALBUTEROL (NEB) 0.31 MG/3 ML AMP HHN ×4 (01:56→20:09)
[2017-10-12] MEDS: MEROPENEM 500MG/50 ML (PMX) 50 ML IVPB ×2 (03:38→15:48)
[2017-10-12 06:38] LABS: ABNORMAL IP MESSAGE 1; HEMATOCRIT 24.4 % (37.0-47.0); HEMOGLOBIN 8.4 g/dl (12.0-16.0); MEAN CORPUSCULAR HEMOGLOBIN 32.8 pg (29.0-33.0); MEAN CORPUSCULAR HGB CONC 34.4 g/dl (32.0-37.0); MEAN CORPUSCULAR VOLUME 95.3 fl (82.0-101.0); MEAN PLATELET VOLUME 11.9 fl (7.4-10.4); NUCLEATED RED BLOOD CELLS% 0.8 /100WBC (0.0-0.0); PLATELET COUNT 165 10^3/UL (140-415); RED BLOOD COUNT 2.56 10^6/ul (4.20-5.40); RED CELL DISTRIBUTION WIDTH 20.7 % (11.5-14.5)
[2017-10-12 06:38] LABS: WHITE BLOOD COUNT 15.4 10^3/ul (4.8-10.8)
[2017-10-12] MEDS: PANTOPRAZOLE 40 MG INJ IV ×2 (06:41→17:27)
[2017-10-12 06:50] LABS: ANION GAP 15 (8-16); BLOOD UREA NITROGEN 43 mg/dl (7-20); CALCIUM 7.2 mg/dl (8.4-10.2); CARBON DIOXIDE 26 mmol/L (21-31); CHLORIDE 111 mmol/L (97-110); CREATININE 6.33 mg/dl (0.44-1.00); GLUCOSE 106 mg/dl (70-220); MAGNESIUM 2.1 mg/dl (1.7-2.5); POTASSIUM 3.6 mmol/L (3.5-5.1); SODIUM 148 mmol/L (135-144)
[2017-10-12 06:52] LABS: ALANINE AMINOTRANSFERASE 34 IU/L (13-69); ALBUMIN 2.2 g/dl (3.3-4.9); ALKALINE PHOSPHATASE 346 IU/L (42-121); ASPARTATE AMINO TRANSFERASE 240 IU/L (15-46); BILIRUBIN,INDIRECT 1.5 mg/dl (0-1.1); BILIRUBIN,TOTAL 10.3 mg/dl (0.2-1.3); POSITIVE DIFF @See below; TOTAL PROTEIN 6.1 g/dl (6.1-8.1)
[2017-10-12 06:53] LABS: ADD MAN DIFF? YES
[2017-10-12] MEDS: FOLIC ACID 1 MG TAB PO (08:23)
[2017-10-12] MEDS: NEUTRA-PHOS 250 MG PACKET NGT ×3 (08:23→21:49)
[2017-10-12] MEDS: DOCUSATE SODIUM 100 MG CAP PO ×2 (08:23→21:49)
[2017-10-12] MEDS: MULTIVITAMINS THERAPEUTIC TAB PO (08:24)
[2017-10-12] MEDS: MIDODRINE 5 MG TAB PO ×3 (08:24→21:28)
[2017-10-12] MEDS: RIFAXIMIN 550 MG TAB PO ×2 (08:24→21:29)
[2017-10-12 08:25] LABS: INR 1.34; PROTIME 16.8 Sec (11.9-14.9); PT RATIO 1.3
[2017-10-12] MEDS: VITAMIN A & D 5 GM OINT PACKET TOP (08:25)
[2017-10-12] MEDS: THIAMINE 100 MG TAB PO (08:25)
[2017-10-12] MEDS: TOPIRAMATE 25 MG TAB PO ×2 (08:36→21:28)
[2017-10-12 09:12] LABS: ANISOCYTOSIS 2+ (0-0); BAND NEUTROPHILS #M 3.2 10^3/ul (0.0-0.6); BAND NEUTROPHILS % (M) 21 % (0-4); EOSINOPHILS % (M) 4 % (0-7); HYPOCHROMASIA 2+ (0-0); LYMPHOCYTES % (M) 13 % (15-51); METAMYELOCYTES #M 0.3 10^3/ul (0.0-0.0); METAMYELOCYTES %M 2 % (0-0); MICROCYTOSIS 1+ (0-0); MONOCYTE #M 1.3 10^3/ul (0.3-0.9); MONOCYTES % (M) 9 % (0-11); MYELOCYTES #M 0.9 10^3/ul (0.0-0.0); MYELOCYTES % (M) 6 % (0-0); PLATELET ESTIMATE NORMAL; POLYCHROMASIA 3+ (0-0); SEG NEUT #M 7.4 10^3/ul (1.6-7.5); SEGMENTED NEUTROPHILS (M) % 45 % (39-77); SMUDGE%M 9 % (0-0)
[2017-10-12] MEDS: POTASSIUM PHOSPHATE 20 MEQ in SOD CHLORIDE 0.9% 250 ML IVPB (09:45)
[2017-10-12] MEDS: HEPARIN 1000 UNITS/ML 10 ML INJ CATHETER (12:53)
[2017-10-12] MEDS: LORAZEPAM 2 MG INJ IV (21:38)
[2017-10-13] MEDS: LACTULOSE 30ML CUP NGT ×5 (01:16→23:34)
[2017-10-13] MEDS: LEVALBUTEROL (NEB) 0.31 MG/3 ML AMP HHN ×4 (02:09→20:21)
[2017-10-13] MEDS: MEROPENEM 500MG/50 ML (PMX) 50 ML IVPB ×2 (04:16→17:07)
[2017-10-13] MEDS: HYDROmorphONE 0.5 MG/0.5 ML SYG IV ×3 (04:37→17:12)
[2017-10-13 05:14] LABS: ADD MAN DIFF? NO
[2017-10-13 05:19] LABS: WHITE BLOOD COUNT 16.5 10^3/ul (4.8-10.8)
[2017-10-13 05:19] LABS: ABNORMAL IP MESSAGE 1; BASOPHIL # 0.2 10^3/ul (0.0-0.1); BASOPHILS % 1.3 % (0.0-2.0); EOSINOPHILS # 0.9 10^3/ul (0.0-0.5); EOSINOPHILS % 5.3 % (0.0-7.0); HEMATOCRIT 25.5 % (37.0-47.0); HEMOGLOBIN 8.7 g/dl (12.0-16.0); LYMPHOCYTES # 2.3 10^3/ul (0.8-2.9); LYMPHOCYTES % 13.9 % (15.0-51.0); MEAN CORPUSCULAR HEMOGLOBIN 32.5 pg (29.0-33.0); MEAN CORPUSCULAR HGB CONC 34.1 g/dl (32.0-37.0); MEAN CORPUSCULAR VOLUME 95.1 fl (82.0-101.0); MEAN PLATELET VOLUME 12.3 fl (7.4-10.4); MONOCYTE # 1.8 10^3/ul (0.3-0.9); MONOCYTES % 10.7 % (0.0-11.0); NEUTROPHIL # 10.3 10^3/ul (1.6-7.5); NEUTROPHILS % 62.3 % (39.0-77.0); NUCLEATED RED BLOOD CELLS # 0.2 10^3/ul (0.0-0.0); NUCLEATED RED BLOOD CELLS% 1.1 /100WBC (0.0-0.0); PLATELET COUNT 174 10^3/UL (140-415); RED BLOOD COUNT 2.68 10^6/ul (4.20-5.40); RED CELL DISTRIBUTION WIDTH 21.2 % (11.5-14.5)
[2017-10-13 05:24] LABS: POSITIVE DIFF @See below
[2017-10-13 05:45] LABS: VANCOMYCIN,RANDOM 16.5 ug/ml
[2017-10-13 05:45] LABS: ANION GAP 15 (8-16); BLOOD UREA NITROGEN 34 mg/dl (7-20); CALCIUM 7.3 mg/dl (8.4-10.2); CARBON DIOXIDE 26 mmol/L (21-31); CHLORIDE 108 mmol/L (97-110); CREATININE 5.34 mg/dl (0.44-1.00); GLUCOSE 113 mg/dl (70-220); PHOSPHORUS 1.8 mg/dl (2.5-4.9); POTASSIUM 3.4 mmol/L (3.5-5.1); SODIUM 146 mmol/L (135-144)
[2017-10-13] MEDS: PANTOPRAZOLE 40 MG INJ IV ×2 (06:05→17:07)
[2017-10-13] MEDS: ACETAMINOPHEN 500 MG TAB PO (08:11)
[2017-10-13] MEDS: FOLIC ACID 1 MG TAB PO (08:11)
[2017-10-13] MEDS: NEUTRA-PHOS 250 MG PACKET NGT ×2 (08:11→12:06)
[2017-10-13] MEDS: THIAMINE 100 MG TAB PO (08:11)
[2017-10-13] MEDS: RIFAXIMIN 550 MG TAB PO ×2 (08:11→21:35)
[2017-10-13] MEDS: MULTIVITAMINS THERAPEUTIC TAB PO (08:11)
[2017-10-13] MEDS: VITAMIN A & D 5 GM OINT PACKET TOP (08:11)
[2017-10-13] MEDS: MIDODRINE 5 MG TAB PO ×3 (08:12→21:35)
[2017-10-13] MEDS: DOCUSATE SODIUM 100 MG CAP PO ×2 (08:12→21:00)
[2017-10-13] MEDS: TOPIRAMATE 25 MG TAB PO ×2 (08:12→21:35)
[2017-10-13 10:37] LABS: ANISOCYTOSIS 2+ (0-0); BAND NEUTROPHILS #M 1.6 10^3/ul (0.0-0.6); BAND NEUTROPHILS % (M) 10 % (0-4); BASOPHIL #M 0.4 10^3/ul (0.0-0.0); BASOPHILS % (M) 3 % (0-2); EOSINOPHILS % (M) 3 % (0-7); ERYTHROBLAST% (NRBC) (M) 1 % (0-0); GIANT THROMBO% (M) 2 % (0-0); HYPOCHROMASIA 1+ (0-0); LYMPHOCYTES #M 2.3 10^3/ul (0.8-2.9); LYMPHOCYTES % (M) 14 % (15-51); METAMYELOCYTES #M 0.3 10^3/ul (0.0-0.0); METAMYELOCYTES %M 2 % (0-0); MONOCYTE #M 1.6 10^3/ul (0.3-0.9); MONOCYTES % (M) 10 % (0-11); MYELOCYTES #M 0.6 10^3/ul (0.0-0.0); MYELOCYTES % (M) 4 % (0-0); PLATELET ESTIMATE NORMAL; POLYCHROMASIA 3+ (0-0); REACTIVE LYMPHOCYTES #M 0.4 10^3/ul (0.0-0.0); REACTIVE LYMPHOCYTES% (M) 3 % (0-0); SEG NEUT #M 8.7 10^3/ul (1.6-7.5); SEGMENTED NEUTROPHILS (M) % 51 % (39-77); SMUDGE%M 3 % (0-0)
[2017-10-13] MEDS: POTASSIUM PHOSPHATE 40 MEQ in SOD CHLORIDE 0.9% 250 ML IVPB (10:41)
[2017-10-13] MEDS: METOCLOPRAMIDE 10 MG INJ IV (17:11)
[2017-10-13] MEDS: VANCOMYCIN 2 GM in SOD CHLORIDE 0.9% 500 ML IVPB (21:42)
[2017-10-14] MEDS: LEVALBUTEROL (NEB) 0.31 MG/3 ML AMP HHN ×4 (02:22→22:35)
[2017-10-14] MEDS: HYDROmorphONE 0.5 MG/0.5 ML SYG IV (02:46)
[2017-10-14] MEDS: MEROPENEM 500MG/50 ML (PMX) 50 ML IVPB ×2 (04:30→15:46)
[2017-10-14] MEDS: LACTULOSE 30ML CUP NGT ×2 (05:47→12:00)
[2017-10-14] MEDS: PANTOPRAZOLE 40 MG INJ IV ×2 (05:50→17:44)
[2017-10-14 07:51] LABS: HEMATOCRIT 22.4 % (37.0-47.0); HEMOGLOBIN 7.3 g/dl (12.0-16.0); MEAN CORPUSCULAR HEMOGLOBIN 32.6 pg (29.0-33.0); MEAN CORPUSCULAR HGB CONC 32.6 g/dl (32.0-37.0); MEAN PLATELET VOLUME 12.5 fl (7.4-10.4); PLATELET COUNT 181 10^3/UL (140-415); RED BLOOD COUNT 2.24 10^6/ul (4.20-5.40); RED CELL DISTRIBUTION WIDTH 20.9 % (11.5-14.5)
[2017-10-14 07:51] LABS: WHITE BLOOD COUNT 24.6 10^3/ul (4.8-10.8)
[2017-10-14 07:52] LABS: ABNORMAL IP MESSAGE 1; NUCLEATED RED BLOOD CELLS% 2.2 /100WBC (0.0-0.0)
[2017-10-14 08:02] LABS: ADD MAN DIFF? YES; POSITIVE DIFF @See below
[2017-10-14 08:16] LABS: ANION GAP 17 (8-16); BLOOD UREA NITROGEN 47 mg/dl (7-20); CALCIUM 7.2 mg/dl (8.4-10.2); CARBON DIOXIDE 26 mmol/L (21-31); CHLORIDE 108 mmol/L (97-110); CREATININE 6.47 mg/dl (0.44-1.00); GLUCOSE 101 mg/dl (70-220); MAGNESIUM 2.2 mg/dl (1.7-2.5); PHOSPHORUS 4.4 mg/dl (2.5-4.9); POTASSIUM 4.3 mmol/L (3.5-5.1); SODIUM 147 mmol/L (135-144)
[2017-10-14] MEDS: FOLIC ACID 1 MG TAB PO (09:00)
[2017-10-14] MEDS: TOPIRAMATE 25 MG TAB PO (09:00)
[2017-10-14] MEDS: MULTIVITAMINS THERAPEUTIC TAB PO (09:00)
[2017-10-14] MEDS: THIAMINE 100 MG TAB PO (09:00)
[2017-10-14] MEDS: VITAMIN A & D 5 GM OINT PACKET TOP (09:00)
[2017-10-14] MEDS: DOCUSATE SODIUM 100 MG CAP PO (09:00)
[2017-10-14] MEDS: MIDODRINE 5 MG TAB PO ×2 (09:00→13:00)
[2017-10-14] MEDS: RIFAXIMIN 550 MG TAB PO (09:00)
[2017-10-14 09:49] LABS: ANISOCYTOSIS 2+ (0-0); BAND NEUTROPHILS #M 3.9 10^3/ul (0.0-0.6); BAND NEUTROPHILS % (M) 16 % (0-4); BASOPHIL #M 0.4 10^3/ul (0.0-0.0); BASOPHILS % (M) 2 % (0-2); EOSINOPHILS % (M) 3 % (0-7); ERYTHROBLAST% (NRBC) (M) 6 % (0-0); GIANT THROMBO% (M) 1 % (0-0); LYMPHOCYTES #M 2.7 10^3/ul (0.8-2.9); LYMPHOCYTES % (M) 11 % (15-51); METAMYELOCYTES #M 1.2 10^3/ul (0.0-0.0); METAMYELOCYTES %M 5 % (0-0); MONOCYTE #M 0.7 10^3/ul (0.3-0.9); MONOCYTES % (M) 3 % (0-11); MYELOCYTES #M 0.2 10^3/ul (0.0-0.0); MYELOCYTES % (M) 1 % (0-0); PLATELET ESTIMATE NORMAL; POLYCHROMASIA 3+ (0-0); PROMYELOCYTES #M 0.2 10^3/ul (0-0); PROMYELOCYTES % (M) 1 % (0-0); SEG NEUT #M 15.2 10^3/ul (1.6-7.5); SEGMENTED NEUTROPHILS (M) % 58 % (39-77); SMUDGE%M 3 % (0-0); TARGET CELLS 3+ (0-0)
[2017-10-14] MEDS: ALBUMIN HUMAN 25% 100 ML IV (10:59)
[2017-10-14] MEDS: HEPARIN 1000 UNITS/ML 10 ML INJ CATHETER (14:47)
[2017-10-15] MEDS: MIDODRINE 5 MG TAB PO ×4 (00:09→21:00)
[2017-10-15] MEDS: DOCUSATE SODIUM 100 MG CAP PO ×3 (00:09→21:00)
[2017-10-15] MEDS: TOPIRAMATE 25 MG TAB PO ×3 (00:10→21:00)
[2017-10-15] MEDS: RIFAXIMIN 550 MG TAB PO ×3 (00:10→21:00)
[2017-10-15] MEDS: LACTULOSE ENEMA 1,000 ML BTL PR ×2 (00:34→05:48)
[2017-10-15] MEDS: LEVALBUTEROL (NEB) 0.31 MG/3 ML AMP HHN ×4 (03:08→20:40)
[2017-10-15] MEDS: MEROPENEM 500MG/50 ML (PMX) 50 ML IVPB ×2 (05:39→15:40)
[2017-10-15] MEDS: PANTOPRAZOLE 40 MG INJ IV (05:39)
[2017-10-15] MEDS: HYDROmorphONE 0.5 MG/0.5 ML SYG IV (05:40)
[2017-10-15 07:14] LABS: WHITE BLOOD COUNT 19.4 10^3/ul (4.8-10.8)
[2017-10-15 07:14] LABS: ABNORMAL IP MESSAGE 1; HEMATOCRIT 22.2 % (37.0-47.0); HEMOGLOBIN 7.4 g/dl (12.0-16.0); MEAN CORPUSCULAR HEMOGLOBIN 32.7 pg (29.0-33.0); MEAN CORPUSCULAR HGB CONC 33.3 g/dl (32.0-37.0); MEAN CORPUSCULAR VOLUME 98.2 fl (82.0-101.0); MEAN PLATELET VOLUME 11.8 fl (7.4-10.4); PLATELET COUNT 183 10^3/UL (140-415); RED BLOOD COUNT 2.26 10^6/ul (4.20-5.40); RED CELL DISTRIBUTION WIDTH 20.7 % (11.5-14.5)
[2017-10-15 07:22] LABS: POSITIVE DIFF @See below
[2017-10-15 07:23] LABS: ADD MAN DIFF? YES
[2017-10-15 07:26] LABS: ALANINE AMINOTRANSFERASE 34 IU/L (13-69); ALBUMIN 2.1 g/dl (3.3-4.9); ALBUMIN/GLOBULIN RATIO 0.55; ALKALINE PHOSPHATASE 259 IU/L (42-121); ANION GAP 12 (8-16); ASPARTATE AMINO TRANSFERASE 402 IU/L (15-46); BILIRUBIN,INDIRECT 1.3 mg/dl (0-1.1); BLOOD UREA NITROGEN 38 mg/dl (7-20); CALCIUM 7.7 mg/dl (8.4-10.2); CARBON DIOXIDE 29 mmol/L (21-31); CHLORIDE 113 mmol/L (97-110); CREATININE 5.76 mg/dl (0.44-1.00); GLUCOSE 95 mg/dl (70-220); POTASSIUM 3.6 mmol/L (3.5-5.1); SODIUM 150 mmol/L (135-144); TOTAL PROTEIN 5.9 g/dl (6.1-8.1)
[2017-10-15 07:28] LABS: MAGNESIUM 2.1 mg/dl (1.7-2.5)
[2017-10-15] MEDS: THIAMINE 100 MG TAB PO (09:00)
[2017-10-15 09:28] LABS: BAND NEUTROPHILS #M 1.3 10^3/ul (0.0-0.6); BAND NEUTROPHILS % (M) 7 % (0-4); BASOPHIL #M 0.3 10^3/ul (0.0-0.0); BASOPHILS % (M) 2 % (0-2); EOSINOPHILS % (M) 5 % (0-7); ERYTHROBLAST% (NRBC) (M) 1 % (0-0); GIANT THROMBO% (M) 2 % (0-0); HYPOCHROMASIA 1+ (0-0); LYMPHOCYTES #M 2.5 10^3/ul (0.8-2.9); LYMPHOCYTES % (M) 13 % (15-51); METAMYELOCYTES #M 0.1 10^3/ul (0.0-0.0); METAMYELOCYTES %M 1 % (0-0); MONOCYTE #M 1.3 10^3/ul (0.3-0.9); MONOCYTES % (M) 7 % (0-11); MYELOCYTES #M 0.7 10^3/ul (0.0-0.0); MYELOCYTES % (M) 4 % (0-0); PLATELET ESTIMATE NORMAL; POLYCHROMASIA 1+ (0-0); REACTIVE LYMPHOCYTES #M 0.1 10^3/ul (0.0-0.0); REACTIVE LYMPHOCYTES% (M) 1 % (0-0); SEG NEUT #M 11.9 10^3/ul (1.6-7.5); SEGMENTED NEUTROPHILS (M) % 60 % (39-77); SMUDGE%M 11 % (0-0); TARGET CELLS 1+ (0-0)
[2017-10-15] MEDS: FOLIC ACID 1 MG TAB PO (10:18)
[2017-10-15] MEDS: MULTIVITAMINS THERAPEUTIC TAB PO (10:19)
[2017-10-15] MEDS: VITAMIN A & D 5 GM OINT PACKET TOP (10:23)
[2017-10-15] MEDS: DEXTROSE 5% 1,000 ML IV (12:17)
[2017-10-15] MEDS ORDERED: HYDROmorphONE 4 MG TAB PO (14:30)
[2017-10-15] MEDS: LACTULOSE 30ML CUP NGT (18:00)
[2017-10-15] MEDS: LANSOPRAZOLE 30 MG CAP NGT (18:00)
[2017-10-16] MEDS: LEVALBUTEROL (NEB) 0.31 MG/3 ML AMP HHN ×4 (01:32→19:41)
[2017-10-16] MEDS: ACETAMINOPHEN 650 MG SUPP PR (02:15)
[2017-10-16] MEDS: MEROPENEM 500MG/50 ML (PMX) 50 ML IVPB ×2 (04:40→17:08)
[2017-10-16] MEDS: LANSOPRAZOLE 30 MG CAP NGT ×2 (05:47→17:59)
[2017-10-16] MEDS: LACTULOSE 30ML CUP NGT ×3 (05:47→12:00)
[2017-10-16] MEDS: DEXTROSE 5% 1,000 ML IV (06:00)
[2017-10-16 08:27] LABS: ADD MAN DIFF? NO
[2017-10-16 08:32] LABS: ABNORMAL IP MESSAGE 1; BASOPHIL # 0.2 10^3/ul (0.0-0.1); BASOPHILS % 0.9 % (0.0-2.0); EOSINOPHILS # 1.1 10^3/ul (0.0-0.5); EOSINOPHILS % 5.5 % (0.0-7.0); HEMATOCRIT 22.2 % (37.0-47.0); HEMOGLOBIN 7.5 g/dl (12.0-16.0); LYMPHOCYTES # 2.9 10^3/ul (0.8-2.9); MEAN CORPUSCULAR HGB CONC 33.8 g/dl (32.0-37.0); MEAN CORPUSCULAR VOLUME 97.8 fl (82.0-101.0); MEAN PLATELET VOLUME 11.9 fl (7.4-10.4); MONOCYTE # 1.5 10^3/ul (0.3-0.9); MONOCYTES % 7.6 % (0.0-11.0); NEUTROPHIL # 12.5 10^3/ul (1.6-7.5); NUCLEATED RED BLOOD CELLS # 0.3 10^3/ul (0.0-0.0); NUCLEATED RED BLOOD CELLS% 1.5 /100WBC (0.0-0.0); PLATELET COUNT 170 10^3/UL (140-415); POSITIVE DIFF @See below; RED BLOOD COUNT 2.27 10^6/ul (4.20-5.40); RED CELL DISTRIBUTION WIDTH 20.8 % (11.5-14.5)
[2017-10-16 08:32] LABS: WHITE BLOOD COUNT 19.3 10^3/ul (4.8-10.8)
[2017-10-16 08:51] LABS: ANION GAP 14 (8-16); BLOOD UREA NITROGEN 51 mg/dl (7-20); CALCIUM 7.6 mg/dl (8.4-10.2); CARBON DIOXIDE 26 mmol/L (21-31); CHLORIDE 112 mmol/L (97-110); GLUCOSE 104 mg/dl (70-220); POTASSIUM 3.3 mmol/L (3.5-5.1); SODIUM 149 mmol/L (135-144)
[2017-10-16] MEDS: FOLIC ACID 1 MG TAB PO (10:03)
[2017-10-16] MEDS: THIAMINE 100 MG TAB PO (10:03)
[2017-10-16] MEDS: MULTIVITAMINS THERAPEUTIC TAB PO (10:03)
[2017-10-16] MEDS: VITAMIN A & D 5 GM OINT PACKET TOP (10:03)
[2017-10-16] MEDS: DOCUSATE SODIUM 100 MG CAP PO ×2 (10:04→20:31)
[2017-10-16] MEDS: TOPIRAMATE 25 MG TAB PO ×2 (10:04→20:32)
[2017-10-16] MEDS: RIFAXIMIN 550 MG TAB PO ×2 (10:04→20:32)
[2017-10-16] MEDS: MIDODRINE 5 MG TAB PO ×3 (10:05→20:32)
[2017-10-16] MEDS: HEPARIN 1000 UNITS/ML 10 ML INJ CATHETER (14:01)
[2017-10-16] MEDS: LACTULOSE ENEMA 1,000 ML BTL PR ×2 (17:53→18:09)
[2017-10-16] MEDS ORDERED: LACTULOSE 30ML CUP PR (18:00)
[2017-10-16] MEDS: LORAZEPAM 2 MG INJ IV (22:25)
[2017-10-17] MEDS: LACTULOSE ENEMA 1,000 ML BTL PR ×4 (00:29→18:35)
[2017-10-17] MEDS: LEVALBUTEROL (NEB) 0.31 MG/3 ML AMP HHN ×4 (02:06→20:26)
[2017-10-17] MEDS: MEROPENEM 500MG/50 ML (PMX) 50 ML IVPB ×2 (04:35→18:35)
[2017-10-17] MEDS: LANSOPRAZOLE 30 MG CAP NGT ×2 (06:45→18:35)
[2017-10-17 08:59] LABS: VANCOMYCIN,RANDOM 15.6 ug/ml
[2017-10-17] MEDS: LEVALBUTEROL (NEB) 0.63 MG/3 ML AMP HHN (10:01)
[2017-10-17] MEDS: MIDODRINE 5 MG TAB PO ×3 (10:07→22:46)
[2017-10-17] MEDS: RIFAXIMIN 550 MG TAB PO ×2 (10:07→22:43)
[2017-10-17] MEDS: MULTIVITAMINS THERAPEUTIC TAB PO (10:07)
[2017-10-17] MEDS: VITAMIN A & D 5 GM OINT PACKET TOP (10:07)
[2017-10-17] MEDS: FOLIC ACID 1 MG TAB PO (10:07)
[2017-10-17] MEDS: THIAMINE 100 MG TAB PO (10:08)
[2017-10-17] MEDS: DOCUSATE SODIUM 100 MG CAP PO ×2 (10:08→22:43)
[2017-10-17] MEDS: TOPIRAMATE 25 MG TAB PO ×2 (10:08→22:43)
[2017-10-17] MEDS: METOCLOPRAMIDE 10 MG INJ IV (17:01)
[2017-10-17] MEDS: VANCOMYCIN 1.75 GM in SOD CHLORIDE 0.9% 500 ML IVPB (22:43)
[2017-10-18] MEDS: LACTULOSE ENEMA 1,000 ML BTL PR ×4 (01:22→18:00)
[2017-10-18] MEDS: LEVALBUTEROL (NEB) 0.31 MG/3 ML AMP HHN ×4 (01:39→20:02)
[2017-10-18] MEDS: MEROPENEM 500MG/50 ML (PMX) 50 ML IVPB ×2 (05:10→15:42)
[2017-10-18 06:25] LABS: ADD MAN DIFF? NO
[2017-10-18 06:36] LABS: BASOPHIL # 0.1 10^3/ul (0.0-0.1); BASOPHILS % 0.8 % (0.0-2.0); EOSINOPHILS # 0.9 10^3/ul (0.0-0.5); HEMATOCRIT 23.5 % (37.0-47.0); HEMOGLOBIN 7.9 g/dl (12.0-16.0); LYMPHOCYTES # 2.3 10^3/ul (0.8-2.9); MEAN CORPUSCULAR HEMOGLOBIN 33.3 pg (29.0-33.0); MEAN CORPUSCULAR HGB CONC 33.6 g/dl (32.0-37.0); MEAN CORPUSCULAR VOLUME 99.2 fl (82.0-101.0); MEAN PLATELET VOLUME 11.7 fl (7.4-10.4); MONOCYTE # 1.4 10^3/ul (0.3-0.9); NEUTROPHIL # 9.8 10^3/ul (1.6-7.5); NEUTROPHILS % 64.4 % (39.0-77.0); NUCLEATED RED BLOOD CELLS # 0.1 10^3/ul (0.0-0.0); NUCLEATED RED BLOOD CELLS% 0.3 /100WBC (0.0-0.0); PLATELET COUNT 174 10^3/UL (140-415); RED BLOOD COUNT 2.37 10^6/ul (4.20-5.40); RED CELL DISTRIBUTION WIDTH 20.4 % (11.5-14.5)
[2017-10-18 06:36] LABS: WHITE BLOOD COUNT 15.3 10^3/ul (4.8-10.8)
[2017-10-18 06:52] LABS: AMMONIA 33 umol/l (9-30)
[2017-10-18 06:54] LABS: ALANINE AMINOTRANSFERASE 36 IU/L (13-69); ALBUMIN 2.2 g/dl (3.3-4.9); ALKALINE PHOSPHATASE 225 IU/L (42-121); ANION GAP 16 (8-16); ASPARTATE AMINO TRANSFERASE 462 IU/L (15-46); BILIRUBIN,INDIRECT 1.5 mg/dl (0-1.1); BILIRUBIN,TOTAL 11.6 mg/dl (0.2-1.3); BLOOD UREA NITROGEN 52 mg/dl (7-20); CALCIUM 7.8 mg/dl (8.4-10.2); CARBON DIOXIDE 26 mmol/L (21-31); CHLORIDE 106 mmol/L (97-110); CREATININE 6.33 mg/dl (0.44-1.00); GLUCOSE 75 mg/dl (70-220); POTASSIUM 3.3 mmol/L (3.5-5.1); SODIUM 145 mmol/L (135-144); TOTAL PROTEIN 6.3 g/dl (6.1-8.1)
[2017-10-18] MEDS: LANSOPRAZOLE 30 MG CAP NGT (07:13)
[2017-10-18] MEDS: RIFAXIMIN 550 MG TAB PO ×2 (08:45→22:16)
[2017-10-18] MEDS: VITAMIN A & D 5 GM OINT PACKET TOP (08:45)
[2017-10-18] MEDS: DOCUSATE SODIUM 100 MG CAP PO ×2 (08:45→22:15)
[2017-10-18] MEDS: THIAMINE 100 MG TAB PO (08:46)
[2017-10-18] MEDS: FOLIC ACID 1 MG TAB PO (08:47)
[2017-10-18] MEDS: MIDODRINE 5 MG TAB PO ×3 (08:47→22:19)
[2017-10-18] MEDS: TOPIRAMATE 25 MG TAB PO ×2 (08:47→22:16)
[2017-10-18] MEDS: MULTIVITAMINS THERAPEUTIC TAB PO (08:47)
[2017-10-18] MEDS: ALBUMIN HUMAN 25% 100 ML IV (15:41)
[2017-10-18] MEDS: HEPARIN 1000 UNITS/ML 10 ML INJ CATHETER (17:22)
[2017-10-18] MEDS: HYDROmorphONE 0.5 MG/0.5 ML SYG IV (17:44)
[2017-10-18] MEDS: PANTOPRAZOLE (EC) 40 MG TAB PO (18:25)
[2017-10-18] MEDS: LACTULOSE 30ML CUP PO (22:38)
[2017-10-19] MEDS: LEVALBUTEROL (NEB) 0.31 MG/3 ML AMP HHN ×4 (00:42→20:00)
[2017-10-19] MEDS: MEROPENEM 500MG/50 ML (PMX) 50 ML IVPB ×2 (04:22→17:20)
[2017-10-19] MEDS: PANTOPRAZOLE (EC) 40 MG TAB PO ×2 (07:31→17:19)
[2017-10-19 07:47] LABS: ADD MAN DIFF? NO
[2017-10-19 08:08] LABS: WHITE BLOOD COUNT 15.1 10^3/ul (4.8-10.8)
[2017-10-19 08:08] LABS: BASOPHIL # 0.1 10^3/ul (0.0-0.1); BASOPHILS % 0.8 % (0.0-2.0); EOSINOPHILS # 0.9 10^3/ul (0.0-0.5); EOSINOPHILS % 5.9 % (0.0-7.0); HEMATOCRIT 22.1 % (37.0-47.0); HEMOGLOBIN 7.1 g/dl (12.0-16.0); LYMPHOCYTES # 2.1 10^3/ul (0.8-2.9); LYMPHOCYTES % 13.6 % (15.0-51.0); MEAN CORPUSCULAR HEMOGLOBIN 33.3 pg (29.0-33.0); MEAN CORPUSCULAR HGB CONC 32.1 g/dl (32.0-37.0); MEAN CORPUSCULAR VOLUME 103.8 fl (82.0-101.0); MEAN PLATELET VOLUME 11.7 fl (7.4-10.4); MONOCYTE # 1.5 10^3/ul (0.3-0.9); MONOCYTES % 9.8 % (0.0-11.0); NEUTROPHIL # 10.1 10^3/ul (1.6-7.5); NEUTROPHILS % 66.6 % (39.0-77.0); NUCLEATED RED BLOOD CELLS # 0.1 10^3/ul (0.0-0.0); NUCLEATED RED BLOOD CELLS% 0.3 /100WBC (0.0-0.0); PLATELET COUNT 165 10^3/UL (140-415); RED BLOOD COUNT 2.13 10^6/ul (4.20-5.40); RED CELL DISTRIBUTION WIDTH 20.4 % (11.5-14.5)
[2017-10-19] MEDS: DOCUSATE SODIUM 100 MG CAP PO ×2 (08:21→21:12)
[2017-10-19] MEDS: VITAMIN A & D 5 GM OINT PACKET TOP (08:21)
[2017-10-19] MEDS: LACTULOSE 30ML CUP PO ×4 (08:21→21:11)
[2017-10-19] MEDS: TOPIRAMATE 25 MG TAB PO ×2 (08:21→21:13)
[2017-10-19] MEDS: THIAMINE 100 MG TAB PO (08:21)
[2017-10-19 08:22] LABS: ANION GAP 16 (8-16); BLOOD UREA NITROGEN 41 mg/dl (7-20); CARBON DIOXIDE 25 mmol/L (21-31); CHLORIDE 105 mmol/L (97-110); GLUCOSE 72 mg/dl (70-220); POTASSIUM 3.5 mmol/L (3.5-5.1); SODIUM 142 mmol/L (135-144)
[2017-10-19] MEDS: MIDODRINE 5 MG TAB PO ×3 (08:22→21:12)
[2017-10-19] MEDS: MULTIVITAMINS THERAPEUTIC TAB PO (08:22)
[2017-10-19] MEDS: FOLIC ACID 1 MG TAB PO (08:22)
[2017-10-19] MEDS: RIFAXIMIN 550 MG TAB PO ×2 (08:22→23:45)
[2017-10-19 08:37] LABS: AMMONIA 60 umol/l (9-30)
[2017-10-19] MEDS: LEVALBUTEROL (NEB) 0.63 MG/3 ML AMP HHN (20:56)
[2017-10-19] MEDS: PENTOXIFYLLINE (SR) 400 MG TAB PO (21:12)
[2017-10-20] MEDS: LEVALBUTEROL (NEB) 0.31 MG/3 ML AMP HHN ×3 (01:03→20:24)
[2017-10-20] MEDS: LEVALBUTEROL (NEB) 0.63 MG/3 ML AMP HHN (01:03)
[2017-10-20] MEDS: MEROPENEM 500MG/50 ML (PMX) 50 ML IVPB ×2 (04:13→16:10)
[2017-10-20] MEDS: PANTOPRAZOLE (EC) 40 MG TAB PO ×2 (05:20→17:36)
[2017-10-20 05:36] LABS: ADD MAN DIFF? NO
[2017-10-20 05:40] LABS: ABNORMAL IP MESSAGE 1; BASOPHIL # 0.1 10^3/ul (0.0-0.1); BASOPHILS % 0.7 % (0.0-2.0); EOSINOPHILS # 0.8 10^3/ul (0.0-0.5); EOSINOPHILS % 4.9 % (0.0-7.0); HEMATOCRIT 22.2 % (37.0-47.0); HEMOGLOBIN 7.5 g/dl (12.0-16.0); LYMPHOCYTES % 12.1 % (15.0-51.0); MEAN CORPUSCULAR HEMOGLOBIN 33.3 pg (29.0-33.0); MEAN CORPUSCULAR HGB CONC 33.8 g/dl (32.0-37.0); MEAN CORPUSCULAR VOLUME 98.7 fl (82.0-101.0); MEAN PLATELET VOLUME 11.8 fl (7.4-10.4); MONOCYTE # 1.5 10^3/ul (0.3-0.9); MONOCYTES % 9.5 % (0.0-11.0); NEUTROPHIL # 11.1 10^3/ul (1.6-7.5); NEUTROPHILS % 68.7 % (39.0-77.0); NUCLEATED RED BLOOD CELLS # 0.1 10^3/ul (0.0-0.0); NUCLEATED RED BLOOD CELLS% 0.4 /100WBC (0.0-0.0); PLATELET COUNT 206 10^3/UL (140-415); RED BLOOD COUNT 2.25 10^6/ul (4.20-5.40); RED CELL DISTRIBUTION WIDTH 19.4 % (11.5-14.5)
[2017-10-20 05:40] LABS: WHITE BLOOD COUNT 16.1 10^3/ul (4.8-10.8)
[2017-10-20 05:43] LABS: POSITIVE DIFF @See below
[2017-10-20 05:58] LABS: ANION GAP 17 (8-16); BLOOD UREA NITROGEN 45 mg/dl (7-20); CALCIUM 8.3 mg/dl (8.4-10.2); CARBON DIOXIDE 25 mmol/L (21-31); CHLORIDE 106 mmol/L (97-110); CREATININE 6.43 mg/dl (0.44-1.00); GLUCOSE 102 mg/dl (70-220); SODIUM 145 mmol/L (135-144)
[2017-10-20 06:08] LABS: MAGNESIUM 2.2 mg/dl (1.7-2.5)
[2017-10-20 06:08] LABS: PHOSPHORUS 4.1 mg/dl (2.5-4.9)
[2017-10-20 06:21] LABS: POTASSIUM 2.9 mmol/L (3.5-5.1)
[2017-10-20] MEDS: POTASSIUM CHLORIDE (SR) 20 MEQ TAB PO ×2 (08:07→14:48)
[2017-10-20] MEDS: DOCUSATE SODIUM 100 MG CAP PO ×2 (09:00→21:46)
[2017-10-20] MEDS: TOPIRAMATE 25 MG TAB PO ×2 (09:00→21:47)
[2017-10-20] MEDS: LACTULOSE 30ML CUP PO ×4 (09:00→21:46)
[2017-10-20] MEDS: THIAMINE 100 MG TAB PO (09:00)
[2017-10-20] MEDS: MIDODRINE 5 MG TAB PO ×3 (09:00→21:48)
[2017-10-20] MEDS: FOLIC ACID 1 MG TAB PO (09:00)
[2017-10-20] MEDS: MULTIVITAMINS THERAPEUTIC TAB PO (09:00)
[2017-10-20] MEDS: PENTOXIFYLLINE (SR) 400 MG TAB PO ×3 (09:00→21:46)
[2017-10-20] MEDS: RIFAXIMIN 550 MG TAB PO ×2 (09:00→21:46)
[2017-10-20 10:18] LABS: IMMEDIATE SPIN CROSSMATCH 1 1
[2017-10-20] MEDS: HEPARIN 1000 UNITS/ML 10 ML INJ CATHETER (13:28)
[2017-10-20] MEDS: VITAMIN A & D 5 GM OINT PACKET TOP (14:44)
[2017-10-21] MEDS: LEVALBUTEROL (NEB) 0.31 MG/3 ML AMP HHN ×4 (01:49→20:19)
[2017-10-21] MEDS: PANTOPRAZOLE (EC) 40 MG TAB PO ×2 (05:40→17:47)
[2017-10-21 05:49] LABS: ADD MAN DIFF? NO
[2017-10-21 05:54] LABS: BASOPHIL # 0.1 10^3/ul (0.0-0.1); BASOPHILS % 0.9 % (0.0-2.0); EOSINOPHILS # 0.7 10^3/ul (0.0-0.5); EOSINOPHILS % 5.2 % (0.0-7.0); HEMATOCRIT 24.3 % (37.0-47.0); HEMOGLOBIN 8.2 g/dl (12.0-16.0); LYMPHOCYTES # 1.6 10^3/ul (0.8-2.9); LYMPHOCYTES % 12.2 % (15.0-51.0); MEAN CORPUSCULAR HEMOGLOBIN 32.7 pg (29.0-33.0); MEAN CORPUSCULAR HGB CONC 33.7 g/dl (32.0-37.0); MEAN CORPUSCULAR VOLUME 96.8 fl (82.0-101.0); MEAN PLATELET VOLUME 11.5 fl (7.4-10.4); MONOCYTE # 1.2 10^3/ul (0.3-0.9); MONOCYTES % 9.5 % (0.0-11.0); NEUTROPHIL # 8.9 10^3/ul (1.6-7.5); NEUTROPHILS % 68.6 % (39.0-77.0); NUCLEATED RED BLOOD CELLS% 0.3 /100WBC (0.0-0.0); PLATELET COUNT 218 10^3/UL (140-415); RED BLOOD COUNT 2.51 10^6/ul (4.20-5.40); RED CELL DISTRIBUTION WIDTH 20.1 % (11.5-14.5)
[2017-10-21 06:20] LABS: ALANINE AMINOTRANSFERASE 30 IU/L (13-69); ALBUMIN 2.6 g/dl (3.3-4.9); ALKALINE PHOSPHATASE 214 IU/L (42-121); ASPARTATE AMINO TRANSFERASE 469 IU/L (15-46); BILIRUBIN,INDIRECT 1.5 mg/dl (0-1.1); BILIRUBIN,TOTAL 13.2 mg/dl (0.2-1.3); TOTAL PROTEIN 7.1 g/dl (6.1-8.1)
[2017-10-21 06:21] LABS: INR 1.43; PROTIME 17.7 Sec (11.9-14.9); PT RATIO 1.4
[2017-10-21 06:22] LABS: PHOSPHORUS 4.6 mg/dl (2.5-4.9)
[2017-10-21 07:40] LABS: ANION GAP 18 (8-16); BLOOD UREA NITROGEN 36 mg/dl (7-20); CALCIUM 8.5 mg/dl (8.4-10.2); CARBON DIOXIDE 25 mmol/L (21-31); CHLORIDE 105 mmol/L (97-110); CREATININE 5.65 mg/dl (0.44-1.00); GLUCOSE 94 mg/dl (70-220); POTASSIUM 3.3 mmol/L (3.5-5.1); SODIUM 145 mmol/L (135-144)
[2017-10-21] MEDS: LACTULOSE 30ML CUP PO ×5 (09:07→21:13)
[2017-10-21] MEDS: DOCUSATE SODIUM 100 MG CAP PO ×2 (09:07→21:09)
[2017-10-21] MEDS: PENTOXIFYLLINE (SR) 400 MG TAB PO ×3 (09:07→21:09)
[2017-10-21] MEDS: VITAMIN A & D 5 GM OINT PACKET TOP (09:07)
[2017-10-21] MEDS: FOLIC ACID 1 MG TAB PO (09:07)
[2017-10-21] MEDS: THIAMINE 100 MG TAB PO (09:08)
[2017-10-21] MEDS: RIFAXIMIN 550 MG TAB PO ×2 (09:08→21:09)
[2017-10-21] MEDS: TOPIRAMATE 25 MG TAB PO ×2 (09:08→21:09)
[2017-10-21] MEDS: MULTIVITAMINS THERAPEUTIC TAB PO (09:08)
[2017-10-21] MEDS: MIDODRINE 5 MG TAB PO ×3 (09:10→21:07)
[2017-10-21 10:43] LABS: INR 1.41; PROTIME 17.5 Sec (11.9-14.9); PT RATIO 1.4
[2017-10-21] MEDS: METOCLOPRAMIDE 10 MG INJ IV (14:08)
[2017-10-21] MEDS: POTASSIUM CHLORIDE 100 ML IVPB (15:46)
[2017-10-22] MEDS: LEVALBUTEROL (NEB) 0.31 MG/3 ML AMP HHN ×4 (02:37→20:02)
[2017-10-22] MEDS: PANTOPRAZOLE (EC) 40 MG TAB PO ×2 (05:13→17:57)
[2017-10-22 06:32] LABS: ADD MAN DIFF? NO
[2017-10-22 06:39] LABS: WHITE BLOOD COUNT 12.3 10^3/ul (4.8-10.8)
[2017-10-22 06:39] LABS: BASOPHIL # 0.1 10^3/ul (0.0-0.1); BASOPHILS % 0.8 % (0.0-2.0); EOSINOPHILS # 0.7 10^3/ul (0.0-0.5); EOSINOPHILS % 5.7 % (0.0-7.0); HEMATOCRIT 23.5 % (37.0-47.0); LYMPHOCYTES # 1.5 10^3/ul (0.8-2.9); LYMPHOCYTES % 12.3 % (15.0-51.0); MEAN CORPUSCULAR HEMOGLOBIN 32.9 pg (29.0-33.0); MEAN CORPUSCULAR VOLUME 96.7 fl (82.0-101.0); MEAN PLATELET VOLUME 11.9 fl (7.4-10.4); MONOCYTE # 1.2 10^3/ul (0.3-0.9); MONOCYTES % 9.6 % (0.0-11.0); NEUTROPHIL # 8.5 10^3/ul (1.6-7.5); NEUTROPHILS % 69.2 % (39.0-77.0); NUCLEATED RED BLOOD CELLS% 0.2 /100WBC (0.0-0.0); PLATELET COUNT 220 10^3/UL (140-415); RED BLOOD COUNT 2.43 10^6/ul (4.20-5.40); RED CELL DISTRIBUTION WIDTH 19.8 % (11.5-14.5)
[2017-10-22 06:55] LABS: ANION GAP 17 (8-16); BLOOD UREA NITROGEN 42 mg/dl (7-20); CALCIUM 8.5 mg/dl (8.4-10.2); CARBON DIOXIDE 25 mmol/L (21-31); CHLORIDE 106 mmol/L (97-110); CREATININE 6.47 mg/dl (0.44-1.00); GLUCOSE 89 mg/dl (70-220); SODIUM 145 mmol/L (135-144)
[2017-10-22] MEDS: THIAMINE 100 MG TAB PO (09:00)
[2017-10-22] MEDS: DOCUSATE SODIUM 100 MG CAP PO ×2 (09:00→20:29)
[2017-10-22] MEDS: LACTULOSE 30ML CUP PO ×4 (09:00→20:29)
[2017-10-22] MEDS: MULTIVITAMINS THERAPEUTIC TAB PO (09:00)
[2017-10-22] MEDS: TOPIRAMATE 25 MG TAB PO ×2 (09:00→20:29)
[2017-10-22] MEDS: FOLIC ACID 1 MG TAB PO (09:00)
[2017-10-22] MEDS: RIFAXIMIN 550 MG TAB PO ×2 (09:00→20:28)
[2017-10-22] MEDS: VITAMIN A & D 5 GM OINT PACKET TOP (09:00)
[2017-10-22] MEDS: PENTOXIFYLLINE (SR) 400 MG TAB PO ×3 (09:00→20:29)
[2017-10-22] MEDS: POTASSIUM CHLORIDE (SR) 20 MEQ TAB PO (09:32)
[2017-10-22] MEDS: MIDODRINE 5 MG TAB PO ×3 (09:33→21:27)
[2017-10-22] MEDS ORDERED: POTASSIUM CHLORIDE 50 ML IVPB (11:00)
[2017-10-22] MEDS ORDERED: POTASSIUM CHLORIDE 20 MEQ POWDER FOR ORAL SOLN PO (11:30)
[2017-10-22] MEDS: POTASSIUM CHLORIDE 100 ML IVPB ×2 (11:30→13:30)
[2017-10-22] MEDS: HEPARIN 1000 UNITS/ML 10 ML INJ CATHETER (14:40)
[2017-10-22 18:34] LABS: POTASSIUM 3.7 mmol/L (3.5-5.1)
[2017-10-23] MEDS: HYDROmorphONE 0.5 MG/0.5 ML SYG IV (00:13)
[2017-10-23] MEDS: LEVALBUTEROL (NEB) 0.31 MG/3 ML AMP HHN ×4 (02:33→20:43)
[2017-10-23] MEDS: PANTOPRAZOLE (EC) 40 MG TAB PO (05:46)
[2017-10-23 07:04] LABS: ANION GAP 17 (8-16); BLOOD UREA NITROGEN 34 mg/dl (7-20); CALCIUM 8.4 mg/dl (8.4-10.2); CARBON DIOXIDE 26 mmol/L (21-31); CHLORIDE 103 mmol/L (97-110); CREATININE 5.05 mg/dl (0.44-1.00); GLUCOSE 86 mg/dl (70-220); PHOSPHORUS 5.2 mg/dl (2.5-4.9); POTASSIUM 3.2 mmol/L (3.5-5.1); SODIUM 143 mmol/L (135-144)
[2017-10-23] MEDS: TOPIRAMATE 25 MG TAB PO (09:00)
[2017-10-23] MEDS: LACTULOSE 30ML CUP PO ×2 (09:00→13:00)
[2017-10-23] MEDS: VITAMIN A & D 5 GM OINT PACKET TOP (09:00)
[2017-10-23] MEDS: PENTOXIFYLLINE (SR) 400 MG TAB PO ×2 (09:00→13:00)
[2017-10-23] MEDS: THIAMINE 100 MG TAB PO (09:06)
[2017-10-23] MEDS: RIFAXIMIN 550 MG TAB PO (09:06)
[2017-10-23] MEDS: MIDODRINE 5 MG TAB PO ×2 (09:10→13:00)
[2017-10-23] MEDS: MULTIVITAMINS THERAPEUTIC TAB PO (09:11)
[2017-10-23] MEDS: FOLIC ACID 1 MG TAB PO (09:11)
[2017-10-23] MEDS: DOCUSATE SODIUM 100 MG CAP PO (09:11)
[2017-10-23] MEDS: POTASSIUM CHLORIDE 100 ML IVPB ×2 (10:00→11:41)
[2017-10-23] MEDS ORDERED: ARTIFICIAL TEARS 15 ML OPH BOTH EYES (11:30)
[2017-10-23] MEDS ORDERED: morphine LIQ (20 MG/ML PO SYG) PO (11:30)
[2017-10-23] MEDS ORDERED: ACETAMINOPHEN 500 MG TAB PO (11:30)
[2017-10-23] MEDS ORDERED: ACETAMINOPHEN 325 MG TAB PO (11:30)
[2017-10-23] MEDS ORDERED: HALOPERIDOL LIQ (2 MG/ML) PO SYG PO (11:30)
[2017-10-23] MEDS ORDERED: LORAZEPAM 2 MG INJ IV (11:30)
[2017-10-23] MEDS ORDERED: METHADONE (1 MG/ML 5 ML PO UD SYG) PO ×2 (11:30→12:30)
[2017-10-23] MEDS ORDERED: DIMETHICONE STICK TOP (11:30)
[2017-10-23] MEDS ORDERED: METHADONE HCL 10 MG/ML (1ML) POSYG PO (11:30)
[2017-10-23 12:23] LABS: ADD MAN DIFF? NO
[2017-10-23 12:24] LABS: ABNORMAL IP MESSAGE 1; BASOPHIL # 0.1 10^3/ul (0.0-0.1); BASOPHILS % 0.4 % (0.0-2.0); EOSINOPHILS # 0.8 10^3/ul (0.0-0.5); HEMATOCRIT 23.8 % (37.0-47.0); HEMOGLOBIN 7.8 g/dl (12.0-16.0); LYMPHOCYTES # 1.9 10^3/ul (0.8-2.9); LYMPHOCYTES % 14.8 % (15.0-51.0); MEAN CORPUSCULAR HEMOGLOBIN 32.8 pg (29.0-33.0); MEAN CORPUSCULAR HGB CONC 32.8 g/dl (32.0-37.0); MONOCYTE # 1.3 10^3/ul (0.3-0.9); NEUTROPHIL # 8.6 10^3/ul (1.6-7.5); NEUTROPHILS % 66.4 % (39.0-77.0); NUCLEATED RED BLOOD CELLS% 0.2 /100WBC (0.0-0.0); PLATELET COUNT 234 10^3/UL (140-415); RED BLOOD COUNT 2.38 10^6/ul (4.20-5.40); RED CELL DISTRIBUTION WIDTH 19.7 % (11.5-14.5)
[2017-10-23 12:24] LABS: WHITE BLOOD COUNT 12.9 10^3/ul (4.8-10.8)
[2017-10-23] MEDS ORDERED: morphine LIQ (10 MG/5 ML) CUP PO (13:00)
[2017-10-23] MEDS: KETOROLAC 15 MG INJ IV ×2 (17:06→22:41)
[2017-10-24] MEDS: LEVALBUTEROL (NEB) 0.31 MG/3 ML AMP HHN ×4 (02:26→19:18)
[2017-10-24] MEDS: METOCLOPRAMIDE 10 MG INJ IV ×2 (03:24→11:34)
[2017-10-24] MEDS: morphine LIQ (10 MG/5 ML) CUP PO (09:14)
[2017-10-24] MEDS: HYDROmorphONE 0.5 MG/0.5 ML SYG IV (11:33)
[2017-10-24] MEDS: DIPHENHYDRAMINE 50 MG INJ IV (21:06)
[2017-10-25] MEDS: KETOROLAC 15 MG INJ IV (01:11)
[2017-10-25] MEDS: LEVALBUTEROL (NEB) 0.31 MG/3 ML AMP HHN ×4 (01:36→20:03)
[2017-10-25] MEDS: HYDROmorphONE 0.5 MG/0.5 ML SYG IV (23:25)
[2017-10-26] MEDS: LEVALBUTEROL (NEB) 0.31 MG/3 ML AMP HHN ×4 (02:32→19:55)
[2017-10-26] MEDS: HYDROmorphONE 0.5 MG/0.5 ML SYG IV ×3 (11:05→21:21)
[2017-10-27] MEDS: HYDROmorphONE 0.5 MG/0.5 ML SYG IV ×2 (01:31→05:33)
[2017-10-27] MEDS: LEVALBUTEROL (NEB) 0.31 MG/3 ML AMP HHN (02:47)
== END 2017-10-27 08:08 | disposition expired | DRG 441 ==
LOC: TEL 09-30 13:02 → ICU 10-11 09:08 → TEL 10-14 00:08 → MS2 10-20 20:35 → E/R 08:01 → MS2 10-02 22:25 → PP2 10-19 13:40 → TEL 11:38
PROC: 05HM33Z Insertion of Infusion Device into Right Internal Jugular Vein, Percutaneous Approach (ICD-10-PCS; principal; 2017-09-24 16:00)
PROC: 5A1D70Z Performance of Urinary Filtration, Intermittent, Less than 6 Hours Per Day (ICD-10-PCS; 2017-09-24 16:45)
PROC: 30273N1 Transfusion of Nonautologous Red Blood Cells into Products of Conception, Circulatory, Percutaneous Approach (ICD-10-PCS; 2017-09-24 16:45)
DX: K76.7 Hepatorenal syndrome (principal); G92 Toxic encephalopathy; A41.51 Sepsis due to Escherichia coli [E. coli]; R65.20 Severe sepsis without septic shock; K65.1 Peritoneal abscess; N17.9 Acute kidney failure, unspecified; Z68.44 Body mass index [BMI] 60.0-69.9, adult; N39.0 Urinary tract infection, site not specified; N04.9 Nephrotic syndrome with unspecified morphologic changes; L03.90 Cellulitis, unspecified; F10.20 Alcohol dependence, uncomplicated; E66.01 Morbid (severe) obesity due to excess calories; Z66 Do not resuscitate; I46.9 Cardiac arrest, cause unspecified; Z72.0 Tobacco use; K59.00 Constipation, unspecified; E78.5 Hyperlipidemia, unspecified; E88.09 Other disorders of plasma-protein metabolism, not elsewhere classified; D69.6 Thrombocytopenia, unspecified; I95.9 Hypotension, unspecified; D64.9 Anemia, unspecified; R34 Anuria and oliguria; K70.10 Alcoholic hepatitis without ascites; R60.1 Generalized edema; K70.30 Alcoholic cirrhosis of liver without ascites; B85.2 Pediculosis, unspecified; I13.10 Hypertensive heart and chronic kidney disease without heart failure, with stage 1 through stage 4 chronic kidney disease, or unspecified chronic kidney disease; N18.9 Chronic kidney disease, unspecified; B86 Scabies; R16.1 Splenomegaly, not elsewhere classified
CPT/HCPCS: 36415; 36430; 36600; 70450; 71045; 74018; 74176; 76705; 80048; 80053; 80061; 80076; 80202; 80307; 81001; 81003; 82043; 82140; 82595; 82803; 82962; 83605; 83690; 83735; 83880; 84100; 84132; 84155; 84300; 84484; 84703; 85014; 85018; 85025; 85610; 85730; 86021; 86038; 86160; 86226; 86430; 86704; 86709; 86803; 86850; 86900; 86901; 86920; 87040; 87081; 87086; 87340; 90935; 92526; 92610; 93005; 93306; 94640; 94664; 96374; 96375; 97110; 97116; 97162; 97163; 97530; 99217; 99285-25; G0378